=== PATIENT | female | born 1960 | race African-American/Black ===

== ENCOUNTER 2017-05-10 10:11 | Inpatient (IN) ==
[2017-05-10] MEDS ORDERED: methylPREDNISolone SOD SUC 40 MG/1 ML VIAL IV STA (10:35)
[2017-05-10] MEDS ORDERED: methylPREDNISolone SOD SUC 40 MG/1 ML VIAL ONE (10:43)
[2017-05-10 11:31] LABS: Basophils % 0.2 % (0.0-0.8); Eosinophils % 0.3 % (0.00-10.9); Hematocrit 23.9 VOL% (35.7-47.0); Hemoglobin 7.3 GM/DL (12.0-16.0); Immature Granulocytes % 1.6 %; Immature Granulocytes Absolute 0.15 #; Lymphocytes # 1.8 10*3/uL (1.4-4.0); Lymphocytes % 19.6 % (21.3-54.2); Mean Corpuscular HGB Conc 30.5 GM/DL (32-36); Mean Corpuscular Hemoglobin 29 PG (27-34); Mean Corpuscular Volume 94.5 FL (87-102); Mean Platelet Volume 13.4 FL (9.6-12.0); Monocytes # 0.9 10*3/uL (0.11-0.8); Monocytes % 9.4 % (1.7-12.7); NRBC # 0.04 10*3/uL; Neutrophils # 6.5 10*3/uL (1.4-7.4); Neutrophils % 68.9 % (38.7-73.9); Platelet Count 177 T/CUMM (130-400); Red Blood Count 2.53 MC/CUMM (3.8-5.5); Red Cell Distribution Width 20.8 % (9.3-17.3); White Blood Count 9.4 T/CUMM (4-12)
[2017-05-10 11:46] LABS: Bilirubin,Total 0.5 MG/DL (0.2-1.0); Calcium 8.5 MG/DL (8.5-10.1); Osmolality,Calculated 289.5 MOS/KG (273-304); Potassium 3.9 MMOL/L (3.5-5.1); Total Protein 6.9 G/DL (6.4-8.3)
[2017-05-10] MEDS ORDERED: hydrALAZINE 20 MG/1 ML VIAL IV STA (12:12)
[2017-05-10] MEDS ORDERED: hydrALAZINE 20 MG/1 ML VIAL ONE (12:22)
[2017-05-10] MEDS ORDERED: SODIUM CHLORIDE 0.9% 1,000 ML IV PRN (13:12)
[2017-05-10] MEDS ORDERED: DOCUSATE SODIUM 100 MG CAPSULE PO PRN (14:31)
[2017-05-10] MEDS ORDERED: ACETAMINOPHEN 325 MG TABLET PO PRN (14:31)
[2017-05-10] MEDS ORDERED: ONDANSETRON 4 MG/2 ML VIAL IV PRN (14:31)
[2017-05-10] MEDS ORDERED: VANCOMYCIN INJ 1,000 MG in SODIUM CHLORIDE 0.9% 250 ML IV SCH (15:00)
[2017-05-10 18:30] LABS: Hepatitis A Ab IgM Quant 0.09 Index; Hepatitis A Ab IgM Result Negative (Negative); Hepatitis B Core IgM Quant 0.15 Index; Hepatitis B Core IgM Result Negative (Negative); Hepatitis B Surface Ag Quant < 0.10 Index; Hepatitis B Surface Ag Result Negative (Negative); Hepatitis C Virus Ab Quant 0.02 Index; Hepatitis C Virus Ab Result Negative (Negative)
[2017-05-10] MEDS: cloNIDine 0.1 MG TABLET PO SCH (21:22)
[2017-05-10] MEDS: METOPROLOL TARTRATE 50 MG TABLET PO SCH (21:22)
[2017-05-11 05:54] LABS: Basophils # 0.1 10*3/uL (0.0-0.2); Basophils % 0.6 % (0.0-0.8); Eosinophils # 0.1 10*3/uL (0.0-0.87); Eosinophils % 0.5 % (0.00-10.9); Hematocrit 26.3 VOL% (35.7-47.0); Hemoglobin 8.5 GM/DL (12.0-16.0); Immature Granulocytes % 1.7 %; Immature Granulocytes Absolute 0.19 #; Lymphocytes # 2.5 10*3/uL (1.4-4.0); Lymphocytes % 22.9 % (21.3-54.2); Mean Corpuscular HGB Conc 32.3 GM/DL (32-36); Mean Corpuscular Hemoglobin 29 PG (27-34); Mean Corpuscular Volume 90.1 FL (87-102); Mean Platelet Volume 12.7 FL (9.6-12.0); Monocytes # 1.2 10*3/uL (0.11-0.8); Monocytes % 11.1 % (1.7-12.7); NRBC # 0.06 10*3/uL; Neutrophils # 6.9 10*3/uL (1.4-7.4); Neutrophils % 63.2 % (38.7-73.9); Platelet Count 160 T/CUMM (130-400); Red Blood Count 2.92 MC/CUMM (3.8-5.5); Red Cell Distribution Width 19.6 % (9.3-17.3)
[2017-05-11 06:19] LABS: Calcium 8.4 MG/DL (8.5-10.1); Osmolality,Calculated 282.4 MOS/KG (273-304); Potassium 3.9 MMOL/L (3.5-5.1)
[2017-05-11 08:15] VITALS: BP 142/59
[2017-05-11] MEDS ORDERED: PANTOPRAZOLE 40 MG TABLET PO SCH (09:00)
[2017-05-11] MEDS ORDERED: CHOLECALCIFEROL 1,000 UNIT TABLET PO SCH (09:00)
[2017-05-11] MEDS ORDERED: ASPIRIN EC 81 MG TABLET PO SCH (09:00)
[2017-05-11] MEDS ORDERED: MULTIVITAMIN (BEROCCA) TABLET PO SCH (09:00)
[2017-05-11] MEDS ORDERED: OLMESARTAN 20 MG TABLET PO SCH (09:00)
[2017-05-11] MEDS ORDERED: ASCORBIC ACID 500 MG TABLET PO SCH (09:00)
[2017-05-11] MEDS ORDERED: ESTRADIOL 2 MG TABLET PO SCH (09:00)
[2017-05-11] MEDS ORDERED: OMEGA 3 ACID ETHYL ESTERS 1 GM CAPSULE PO SCH (09:00)
[2017-05-11] MEDS ORDERED: amLODIPine 10 MG TABLET PO SCH (09:00)
[2017-05-11] MEDS ORDERED: FERROUS SULFATE 325 MG TABLET PO SCH (09:00)
[2017-05-11] MEDS ORDERED: RENAL PO SCH (09:00)
[2017-05-11] MEDS: cloNIDine 0.1 MG TABLET PO SCH (10:32)
[2017-05-11] MEDS: METOPROLOL TARTRATE 50 MG TABLET PO SCH (10:34)
== END 2017-05-11 13:33 | disposition home or self-care (01) | DRG 811 ==
LOC: N.ED 10:11 → N.EDINP 13:28 → N.5E 17:31
PROVIDERS: ADMIT Hospitalist; ATTEND Hospitalist

== ENCOUNTER 2017-10-13 07:15 | Inpatient (IN) ==
[2017-10-13 08:26] LABS: Basophils # 0.1 10*3/uL (0.0-0.2); Basophils % 0.4 % (0.0-0.8); Eosinophils # 0.1 10*3/uL (0.0-0.87); Eosinophils % 0.3 % (0.00-10.9); Hemoglobin 9.3 GM/DL (12.0-16.0); Immature Granulocytes % 0.7 %; Immature Granulocytes Absolute 0.13 #; Lymphocytes # 1.7 10*3/uL (1.4-4.0); Lymphocytes % 9.2 % (21.3-54.2); Mean Corpuscular HGB Conc 32.1 GM/DL (32-36); Mean Corpuscular Hemoglobin 28 PG (27-34); Mean Corpuscular Volume 88.4 FL (87-102); Mean Platelet Volume 12.5 FL (9.6-12.0); Monocytes # 1.3 10*3/uL (0.11-0.8); Monocytes % 6.8 % (1.7-12.7); Neutrophils # 15.2 10*3/uL (1.4-7.4); Neutrophils % 82.6 % (38.7-73.9); Platelet Count 316 T/CUMM (130-400); Red Blood Count 3.28 MC/CUMM (3.8-5.5); Red Cell Distribution Width 17.4 % (9.3-17.3); White Blood Count 18.4 T/CUMM (4-12)
[2017-10-13 08:56] LABS: Calcium 9.5 MG/DL (8.5-10.1); Osmolality,Calculated 288.4 MOS/KG (273-304); Potassium 3.4 MMOL/L (3.5-5.1)
[2017-10-13 21:33] LABS: Troponin I Only 0.016 NG/ML (0.00-0.045)
[2017-10-13 21:37] LABS: INR 0.9
[2017-10-14 05:22] LABS: Basophils # 0.1 10*3/uL (0.0-0.2); Basophils % 0.5 % (0.0-0.8); Eosinophils # 0.3 10*3/uL (0.0-0.87); Eosinophils % 2.1 % (0.00-10.9); Hematocrit 28.6 VOL% (35.7-47.0); Hemoglobin 8.9 GM/DL (12.0-16.0); Immature Granulocytes % 0.5 %; Immature Granulocytes Absolute 0.08 #; Lymphocytes # 1.5 10*3/uL (1.4-4.0); Lymphocytes % 10.5 % (21.3-54.2); Mean Corpuscular HGB Conc 31.1 GM/DL (32-36); Mean Corpuscular Hemoglobin 28 PG (27-34); Mean Corpuscular Volume 90.8 FL (87-102); Monocytes # 1.5 10*3/uL (0.11-0.8); Monocytes % 10.1 % (1.7-12.7); Neutrophils # 11.1 10*3/uL (1.4-7.4); Neutrophils % 76.3 % (38.7-73.9); Platelet Count 273 T/CUMM (130-400); Red Blood Count 3.15 MC/CUMM (3.8-5.5); Red Cell Distribution Width 17.3 % (9.3-17.3); White Blood Count 14.6 T/CUMM (4-12)
[2017-10-14 05:40] LABS: Troponin I Only < 0.015 NG/ML (0.00-0.045)
[2017-10-14 06:45] LABS: Alanine Aminotransferase < 9 U/L (13-56); Albumin 2.5 G/DL (3.4-5.0); Alkaline Phosphatase 89 U/L (45-117); Aspartate Amino Transferase 20 U/L (0-37); Blood Urea Nitrogen 42 MG/DL (7-18); Calcium 8.6 MG/DL (8.5-10.1); Glucose 103 MG/DL (74-106); Osmolality,Calculated 296.8 MOS/KG (273-304); Potassium 3.5 MMOL/L (3.5-5.1); Sodium 144 MMOL/L (136-145); Total Protein 6.3 G/DL (6.4-8.3)
[2017-10-15 07:16] LABS: Basophils % 0.4 % (0.0-0.8); Eosinophils # 0.6 10*3/uL (0.0-0.87); Eosinophils % 5.6 % (0.00-10.9); Hematocrit 24.5 VOL% (35.7-47.0); Hemoglobin 7.6 GM/DL (12.0-16.0); Immature Granulocytes % 0.6 %; Immature Granulocytes Absolute 0.06 #; Lymphocytes # 2.4 10*3/uL (1.4-4.0); Lymphocytes % 22.8 % (21.3-54.2); Mean Corpuscular Hemoglobin 28 PG (27-34); Mean Corpuscular Volume 89.7 FL (87-102); Mean Platelet Volume 12.1 FL (9.6-12.0); Monocytes # 0.9 10*3/uL (0.11-0.8); Monocytes % 8.6 % (1.7-12.7); Neutrophils # 6.7 10*3/uL (1.4-7.4); Platelet Count 265 T/CUMM (130-400); Red Blood Count 2.73 MC/CUMM (3.8-5.5); Red Cell Distribution Width 16.8 % (9.3-17.3); White Blood Count 10.7 T/CUMM (4-12)
[2017-10-15 07:54] LABS: Alanine Aminotransferase < 6 U/L (13-56); Albumin 2.4 G/DL (3.4-5.0); Alkaline Phosphatase 79 U/L (45-117); Aspartate Amino Transferase 13 U/L (0-37); Bilirubin,Total < 0.39 MG/DL (0.2-1.0); Blood Urea Nitrogen 49 MG/DL (7-18); Calcium 8.6 MG/DL (8.5-10.1); Glucose 107 MG/DL (74-106); Osmolality,Calculated 291.4 MOS/KG (273-304); Potassium 3.4 MMOL/L (3.5-5.1); Sodium 140 MMOL/L (136-145); Total Protein 5.8 G/DL (6.4-8.3)
[2017-10-16 07:53] LABS: Basophils # 0.1 10*3/uL (0.0-0.2); Basophils % 0.8 % (0.0-0.8); Eosinophils # 0.3 10*3/uL (0.0-0.87); Eosinophils % 3.5 % (0.00-10.9); Hematocrit 29.1 VOL% (35.7-47.0); Hemoglobin 8.5 GM/DL (12.0-16.0); Immature Granulocytes % 0.9 %; Immature Granulocytes Absolute 0.08 #; Lymphocytes % 21.4 % (21.3-54.2); Mean Corpuscular HGB Conc 29.2 GM/DL (32-36); Mean Corpuscular Hemoglobin 27 PG (27-34); Mean Corpuscular Volume 92.7 FL (87-102); Mean Platelet Volume 11.7 FL (9.6-12.0); Monocytes # 0.9 10*3/uL (0.11-0.8); Monocytes % 9.9 % (1.7-12.7); Neutrophils # 5.8 10*3/uL (1.4-7.4); Neutrophils % 63.5 % (38.7-73.9); Platelet Count 290 T/CUMM (130-400); Red Blood Count 3.14 MC/CUMM (3.8-5.5); Red Cell Distribution Width 16.6 % (9.3-17.3); White Blood Count 9.2 T/CUMM (4-12)
[2017-10-16 08:25] LABS: Alanine Aminotransferase < 9 U/L (13-56); Albumin 2.7 G/DL (3.4-5.0); Alkaline Phosphatase 92 U/L (45-117); Aspartate Amino Transferase 14 U/L (0-37); Bilirubin,Total < 0.39 MG/DL (0.2-1.0); Blood Urea Nitrogen 29 MG/DL (7-18); Calcium 8.6 MG/DL (8.5-10.1); Glucose 87 MG/DL (74-106); Osmolality,Calculated 281.5 MOS/KG (273-304); Potassium 3.1 MMOL/L (3.5-5.1); Sodium 139 MMOL/L (136-145); Total Protein 6.9 G/DL (6.4-8.3)
[2017-10-17 05:56] LABS: Basophils # 0.1 10*3/uL (0.0-0.2); Basophils % 0.7 % (0.0-0.8); Eosinophils # 0.4 10*3/uL (0.0-0.87); Hematocrit 25.2 VOL% (35.7-47.0); Hemoglobin 7.8 GM/DL (12.0-16.0); Immature Granulocytes % 1.3 %; Immature Granulocytes Absolute 0.12 #; Lymphocytes # 2.3 10*3/uL (1.4-4.0); Lymphocytes % 25.4 % (21.3-54.2); Mean Corpuscular Hemoglobin 28 PG (27-34); Mean Platelet Volume 11.5 FL (9.6-12.0); Monocytes # 1.2 10*3/uL (0.11-0.8); Neutrophils % 55.6 % (38.7-73.9); Platelet Count 261 T/CUMM (130-400); Red Cell Distribution Width 16.5 % (9.3-17.3)
[2017-10-17 06:24] LABS: Alanine Aminotransferase < 6 U/L (13-56); Albumin 2.3 G/DL (3.4-5.0); Alkaline Phosphatase 78 U/L (45-117); Aspartate Amino Transferase 9 U/L (0-37); Bilirubin,Total < 0.39 MG/DL (0.2-1.0); Blood Urea Nitrogen 43 MG/DL (7-18); Calcium 8.4 MG/DL (8.5-10.1); Glucose 100 MG/DL (74-106); Osmolality,Calculated 293.1 MOS/KG (273-304); Potassium 3.4 MMOL/L (3.5-5.1); Sodium 142 MMOL/L (136-145)
[2017-10-17 10:26] LABS: Hepatitis B Surface Ag Quant < 0.10 Index; Hepatitis B Surface Ag Result Negative (Negative)
[2017-10-17 18:31] VITALS: BP 110/58
== END 2017-10-17 16:35 | disposition home or self-care (01) | DRG 177 ==
LOC: N.ED 07:15 → SUATTDRO 12:23 → N.EDINP 12:23 → N.CC 14:59 → N.3E 10-14 10:32
PROVIDERS: ADMIT Internal Medicine; ATTEND Internal Medicine

== ENCOUNTER 2017-10-22 08:45 | Inpatient (IN) ==
[2017-10-22] MEDS ORDERED: DILTIAZEM 50 MG/10 ML VIAL IV STA ×2 (09:23→10:06)
[2017-10-22] MEDS ORDERED: DILTIAZEM 100 MG VIAL.ADD IV ONE (09:27)
[2017-10-22] MEDS ORDERED: SODIUM CHLORIDE 0.9% 100 ML IV ONE (09:28)
[2017-10-22 10:12] LABS: Basophils # 0.1 10*3/uL (0.0-0.2); Basophils % 0.6 % (0.0-0.8); Eosinophils # 0.1 10*3/uL (0.0-0.87); Eosinophils % 0.8 % (0.00-10.9); Hematocrit 35.6 VOL% (35.7-47.0); Hemoglobin 10.7 GM/DL (12.0-16.0); Immature Granulocytes % 2.3 %; Immature Granulocytes Absolute 0.37 #; Lymphocytes # 1.9 10*3/uL (1.4-4.0); Lymphocytes % 11.7 % (21.3-54.2); Mean Corpuscular HGB Conc 30.1 GM/DL (32-36); Mean Corpuscular Hemoglobin 28 PG (27-34); Mean Corpuscular Volume 92.2 FL (87-102); Mean Platelet Volume 12.9 FL (9.6-12.0); Monocytes # 1.5 10*3/uL (0.11-0.8); Monocytes % 9.4 % (1.7-12.7); NRBC # 0.07 10*3/uL; Neutrophils # 12.1 10*3/uL (1.4-7.4); Neutrophils % 75.2 % (38.7-73.9); Platelet Count 314 T/CUMM (130-400); Red Blood Count 3.86 MC/CUMM (3.8-5.5); Red Cell Distribution Width 17.4 % (9.3-17.3); White Blood Count 16.1 T/CUMM (4-12)
[2017-10-22 10:21] LABS: INR 0.9; Partial Thromboplastin Time 28.4 SECS (0-40)
[2017-10-22 10:34] LABS: Albumin 2.8 G/DL (3.4-5.0); Bilirubin,Total 0.4 MG/DL (0.2-1.0); Calcium 8.8 MG/DL (8.5-10.1); Osmolality,Calculated 299.4 MOS/KG (273-304); Potassium 3.8 MMOL/L (3.5-5.1); Total Protein 7.3 G/DL (6.4-8.3)
[2017-10-22] MEDS ORDERED: ONDANSETRON 4 MG/2 ML VIAL IV STA (11:26)
[2017-10-22] MEDS ORDERED: ACETAMINOPHEN 325 MG TABLET PO PRN (14:37)
[2017-10-22] MEDS ORDERED: DEXTROSE 50% 25 GM/50 ML VIAL IV PRN (14:37)
[2017-10-22] MEDS ORDERED: GLUCAGON 1 MG VIAL IM PRN (14:37)
[2017-10-22] MEDS ORDERED: METOCLOPRAMIDE 10 MG/10 ML UDCUP PO SCH (15:00)
[2017-10-22] MEDS ORDERED: ENOXAPARIN 30 MG/0.3 ML SYRINGE SUBCUT SCH (15:00)
[2017-10-22] MEDS ORDERED: DILTIAZEM 60 MG TABLET PO ONE (15:54)
[2017-10-22] MEDS: METOPROLOL TARTRATE 50 MG TABLET PO SCH ×2 (16:09→22:09)
[2017-10-22] MEDS: PIPERACILLIN/TAZOBACTAM 3,375 MG in SODIUM CHLORIDE 0.9% 100 ML IV SCH (16:10)
[2017-10-22] MEDS ORDERED: PANTOPRAZOLE 40 MG TABLET PO SCH (16:30)
[2017-10-22] MEDS: INSULIN REGULAR 100 UNIT/ML SUBCUT SCH ×2 (16:53→22:08)
[2017-10-22] MEDS: APIXABAN 2.5 MG TABLET PO SCH ×2 (16:53→22:07)
[2017-10-22] MEDS: METOCLOPRAMIDE 10 MG/2 ML VIAL IV SCH (18:24)
[2017-10-22] MEDS: DILTIAZEM 30 MG TABLET PO SCH (22:07)
[2017-10-22] MEDS: cloNIDine 0.1 MG TABLET PO SCH (22:08)
[2017-10-22] MEDS: PANTOPRAZOLE 40 MG VIAL IV SCH (22:09)
[2017-10-23] MEDS: METOCLOPRAMIDE 10 MG/2 ML VIAL IV SCH ×4 (01:32→18:00)
[2017-10-23] MEDS: DILTIAZEM 30 MG TABLET PO SCH ×4 (04:05→20:57)
[2017-10-23] MEDS: PIPERACILLIN/TAZOBACTAM 3,375 MG in SODIUM CHLORIDE 0.9% 100 ML IV SCH ×2 (04:06→15:20)
[2017-10-23 04:39] LABS: Basophils # 0.1 10*3/uL (0.0-0.2); Basophils % 0.6 % (0.0-0.8); Eosinophils # 0.4 10*3/uL (0.0-0.87); Eosinophils % 2.9 % (0.00-10.9); Hematocrit 29.8 VOL% (35.7-47.0); Hemoglobin 8.9 GM/DL (12.0-16.0); Immature Granulocytes % 1.5 %; Immature Granulocytes Absolute 0.19 #; Lymphocytes # 2.9 10*3/uL (1.4-4.0); Lymphocytes % 23.5 % (21.3-54.2); Mean Corpuscular HGB Conc 29.9 GM/DL (32-36); Mean Corpuscular Hemoglobin 28 PG (27-34); Mean Corpuscular Volume 92.3 FL (87-102); Monocytes # 1.3 10*3/uL (0.11-0.8); Monocytes % 10.4 % (1.7-12.7); NRBC # 0.03 10*3/uL; Neutrophils # 7.6 10*3/uL (1.4-7.4); Neutrophils % 61.1 % (38.7-73.9); Platelet Count 339 T/CUMM (130-400); Red Blood Count 3.23 MC/CUMM (3.8-5.5); Red Cell Distribution Width 17.5 % (9.3-17.3); White Blood Count 12.5 T/CUMM (4-12)
[2017-10-23 05:04] LABS: Risk Ratio 2.55; VLDL CHOLESTEROL 49.2 MG/DL
[2017-10-23 05:10] LABS: Alanine Aminotransferase < 9 U/L (13-56); Albumin 2.7 G/DL (3.4-5.0); Alkaline Phosphatase 100 U/L (45-117); Aspartate Amino Transferase 12 U/L (0-37); Blood Urea Nitrogen 60 MG/DL (7-18); Glucose 193 MG/DL (74-106); Osmolality,Calculated 302.3 MOS/KG (273-304); Sodium 141 MMOL/L (136-145); Total Protein 6.8 G/DL (6.4-8.3)
[2017-10-23] MEDS ORDERED: amLODIPine 10 MG TABLET PO SCH (09:00)
[2017-10-23] MEDS: MULTIVITAMIN (BEROCCA) TABLET PO SCH (09:55)
[2017-10-23] MEDS: OMEGA 3 ACID ETHYL ESTERS 1 GM CAPSULE PO SCH (09:55)
[2017-10-23] MEDS: CHOLECALCIFEROL 1,000 UNIT TABLET PO SCH (09:55)
[2017-10-23] MEDS: APIXABAN 2.5 MG TABLET PO SCH ×2 (09:56→20:57)
[2017-10-23] MEDS: ASPIRIN EC 81 MG TABLET PO SCH (09:56)
[2017-10-23] MEDS: PANTOPRAZOLE 40 MG VIAL IV SCH ×2 (09:56→22:09)
[2017-10-23] MEDS: INSULIN REGULAR 100 UNIT/ML SUBCUT SCH ×4 (09:56→21:06)
[2017-10-23] MEDS: cloNIDine 0.1 MG TABLET PO SCH (09:57)
[2017-10-23] MEDS: METOPROLOL TARTRATE 50 MG TABLET PO SCH ×2 (09:57→20:57)
[2017-10-23] MEDS ORDERED: cloNIDine 0.1 MG TABLET PO PRN (11:25)
[2017-10-24] MEDS: METOCLOPRAMIDE 10 MG/2 ML VIAL IV SCH ×3 (01:17→12:42)
[2017-10-24] MEDS: PIPERACILLIN/TAZOBACTAM 3,375 MG in SODIUM CHLORIDE 0.9% 100 ML IV SCH ×2 (03:09→16:57)
[2017-10-24] MEDS: DILTIAZEM 30 MG TABLET PO SCH ×4 (03:15→21:04)
[2017-10-24 06:16] LABS: Basophils # 0.1 10*3/uL (0.0-0.2); Basophils % 0.8 % (0.0-0.8); Eosinophils # 0.2 10*3/uL (0.0-0.87); Eosinophils % 1.8 % (0.00-10.9); Hematocrit 30.9 VOL% (35.7-47.0); Hemoglobin 9.5 GM/DL (12.0-16.0); Immature Granulocytes % 1.4 %; Immature Granulocytes Absolute 0.15 #; Lymphocytes # 2.2 10*3/uL (1.4-4.0); Lymphocytes % 19.7 % (21.3-54.2); Mean Corpuscular HGB Conc 30.7 GM/DL (32-36); Mean Corpuscular Hemoglobin 28 PG (27-34); Mean Corpuscular Volume 90.9 FL (87-102); Mean Platelet Volume 12.5 FL (9.6-12.0); Monocytes # 1.2 10*3/uL (0.11-0.8); Monocytes % 10.5 % (1.7-12.7); NRBC # 0.04 10*3/uL; Neutrophils # 7.2 10*3/uL (1.4-7.4); Neutrophils % 65.8 % (38.7-73.9); Platelet Count 296 T/CUMM (130-400); Red Cell Distribution Width 17.7 % (9.3-17.3); White Blood Count 10.9 T/CUMM (4-12)
[2017-10-24 06:59] LABS: Alanine Aminotransferase < 9 U/L (13-56); Albumin 2.5 G/DL (3.4-5.0); Alkaline Phosphatase 113 U/L (45-117); Aspartate Amino Transferase 13 U/L (0-37); Blood Urea Nitrogen 33 MG/DL (7-18); Calcium 8.6 MG/DL (8.5-10.1); Glucose 162 MG/DL (74-106); Osmolality,Calculated 283.8 MOS/KG (273-304); Sodium 137 MMOL/L (136-145); Total Protein 6.6 G/DL (6.4-8.3)
[2017-10-24] MEDS: INSULIN REGULAR 100 UNIT/ML SUBCUT SCH ×4 (08:10→22:21)
[2017-10-24] MEDS: OMEGA 3 ACID ETHYL ESTERS 1 GM CAPSULE PO SCH (08:11)
[2017-10-24] MEDS: CHOLECALCIFEROL 1,000 UNIT TABLET PO SCH (08:11)
[2017-10-24] MEDS: PANTOPRAZOLE 40 MG VIAL IV SCH (08:11)
[2017-10-24] MEDS: MULTIVITAMIN (BEROCCA) TABLET PO SCH (08:12)
[2017-10-24] MEDS: APIXABAN 2.5 MG TABLET PO SCH ×2 (08:12→21:05)
[2017-10-24] MEDS: ASPIRIN EC 81 MG TABLET PO SCH (08:13)
[2017-10-24] MEDS: METOPROLOL TARTRATE 50 MG TABLET PO SCH ×2 (08:13→21:04)
[2017-10-24] MEDS: METOCLOPRAMIDE 10 MG/10 ML UDCUP PO SCH ×2 (16:50→21:06)
[2017-10-24] MEDS: PANTOPRAZOLE 40 MG TABLET PO SCH (18:14)
[2017-10-24] MEDS: MEGESTROL 400 MG/10 ML UDCUP PO SCH (21:06)
[2017-10-25] MEDS: PIPERACILLIN/TAZOBACTAM 3,375 MG in SODIUM CHLORIDE 0.9% 100 ML IV SCH (03:37)
[2017-10-25] MEDS: DILTIAZEM 30 MG TABLET PO SCH (03:38)
[2017-10-25 04:57] LABS: Basophils # 0.1 10*3/uL (0.0-0.2); Basophils % 0.7 % (0.0-0.8); Eosinophils # 0.2 10*3/uL (0.0-0.87); Hemoglobin 9.2 GM/DL (12.0-16.0); Immature Granulocytes % 1.5 %; Immature Granulocytes Absolute 0.16 #; Lymphocytes # 2.3 10*3/uL (1.4-4.0); Lymphocytes % 21.3 % (21.3-54.2); Mean Corpuscular HGB Conc 30.7 GM/DL (32-36); Mean Corpuscular Hemoglobin 28 PG (27-34); Mean Corpuscular Volume 91.5 FL (87-102); Mean Platelet Volume 12.5 FL (9.6-12.0); Monocytes # 1.3 10*3/uL (0.11-0.8); Monocytes % 11.9 % (1.7-12.7); NRBC # 0.03 10*3/uL; Neutrophils # 6.7 10*3/uL (1.4-7.4); Neutrophils % 62.6 % (38.7-73.9); Platelet Count 283 T/CUMM (130-400); Red Blood Count 3.28 MC/CUMM (3.8-5.5); Red Cell Distribution Width 17.7 % (9.3-17.3); White Blood Count 10.7 T/CUMM (4-12)
[2017-10-25 05:35] LABS: Albumin 2.6 G/DL (3.4-5.0); Bilirubin,Total 0.5 MG/DL (0.2-1.0); Calcium 8.4 MG/DL (8.5-10.1); Osmolality,Calculated 294.7 MOS/KG (273-304); Potassium 3.8 MMOL/L (3.5-5.1); Total Protein 7.1 G/DL (6.4-8.3)
[2017-10-25] MEDS ORDERED: DILTIAZEM CD 120 MG CAPSULE PO SCH (09:00)
[2017-10-25] MEDS ORDERED: amLODIPine 10 MG TABLET PO SCH (09:00)
[2017-10-25] MEDS: ASPIRIN EC 81 MG TABLET PO SCH (09:39)
[2017-10-25] MEDS: OMEGA 3 ACID ETHYL ESTERS 1 GM CAPSULE PO SCH (09:39)
[2017-10-25] MEDS: METOCLOPRAMIDE 10 MG/10 ML UDCUP PO SCH ×2 (09:39→12:13)
[2017-10-25] MEDS: MULTIVITAMIN (BEROCCA) TABLET PO SCH (09:39)
[2017-10-25] MEDS: APIXABAN 2.5 MG TABLET PO SCH (09:39)
[2017-10-25] MEDS: MEGESTROL 400 MG/10 ML UDCUP PO SCH (09:39)
[2017-10-25] MEDS: CHOLECALCIFEROL 1,000 UNIT TABLET PO SCH (09:39)
[2017-10-25] MEDS: PANTOPRAZOLE 40 MG TABLET PO SCH (09:40)
[2017-10-25] MEDS: INSULIN REGULAR 100 UNIT/ML SUBCUT SCH ×2 (09:40→12:13)
[2017-10-25] MEDS: METOPROLOL TARTRATE 50 MG TABLET PO SCH (09:40)
[2017-10-25] MEDS ORDERED: CHOLESTYRAMINE 4 GM PACK PO SCH (11:30)
[2017-10-25 12:10] VITALS: BP 159/89
== END 2017-10-25 15:27 | disposition home or self-care (01) | DRG 871 ==
LOC: EDBD → EDUNIT# → N.ED 08:45 → N.EDINP 10:47 → SUATTDRO 10:47 → N.EDINP 13:00 → N.TELES 13:08
PROVIDERS: ADMIT Internal Medicine; ATTEND Internal Medicine Cardiovascular Disease

== ENCOUNTER 2017-11-09 10:00 | Inpatient (IN) ==
[2017-11-09] MEDS ORDERED: ONDANSETRON 4 MG/2 ML VIAL IV STA ×2 (10:33→12:36)
[2017-11-09] MEDS ORDERED: ONDANSETRON 4 MG/2 ML VIAL ONE (10:34)
[2017-11-09 11:19] LABS: Basophils % 0.5 % (0.0-0.8); Eosinophils # 0.1 10*3/uL (0.0-0.87); Eosinophils % 0.8 % (0.00-10.9); Hematocrit 29.9 VOL% (35.7-47.0); Hemoglobin 9.1 GM/DL (12.0-16.0); Immature Granulocytes % 1.9 %; Immature Granulocytes Absolute 0.17 #; Lymphocytes # 1.3 10*3/uL (1.4-4.0); Lymphocytes % 14.4 % (21.3-54.2); Mean Corpuscular HGB Conc 30.4 GM/DL (32-36); Mean Corpuscular Hemoglobin 28 PG (27-34); Mean Corpuscular Volume 91.4 FL (87-102); Mean Platelet Volume 11.6 FL (9.6-12.0); Monocytes % 11.2 % (1.7-12.7); NRBC # 0.03 10*3/uL; Neutrophils # 6.3 10*3/uL (1.4-7.4); Neutrophils % 71.2 % (38.7-73.9); Platelet Count 324 T/CUMM (130-400); Red Blood Count 3.27 MC/CUMM (3.8-5.5); Red Cell Distribution Width 18.6 % (9.3-17.3); White Blood Count 8.8 T/CUMM (4-12)
[2017-11-09 11:53] LABS: Lactic Acid 3.5 MMOL/L (0.4-2.0)
[2017-11-09 11:55] LABS: Alanine Aminotransferase 16 U/L (13-56); Albumin 2.3 G/DL (3.4-5.0); Alkaline Phosphatase 120 U/L (45-117); Aspartate Amino Transferase 27 U/L (0-37); Bilirubin,Total < 0.39 MG/DL (0.2-1.0); Blood Urea Nitrogen 24 MG/DL (7-18); Calcium 8.3 MG/DL (8.5-10.1); Glucose 83 MG/DL (74-106); Osmolality,Calculated 275.8 MOS/KG (273-304); Sodium 137 MMOL/L (136-145); Total Protein 6.8 G/DL (6.4-8.3)
[2017-11-09 11:56] LABS: Troponin I Only 0.135 NG/ML (0.00-0.045)
[2017-11-09] MEDS ORDERED: HYDROmorphone 2 MG/1 ML VIAL IV STA (12:27)
[2017-11-09] MEDS ORDERED: MORPHINE 4 MG/1 ML VIAL IV STA (12:43)
[2017-11-09] MEDS ORDERED: DEXTROSE 50% 25 GM/50 ML SYRINGE IV ONE ×2 (13:48→15:41)
[2017-11-09] MEDS ORDERED: DEXTROSE 50% 25 GM/50 ML VIAL IV STA ×2 (15:45→15:53)
[2017-11-09 16:05] LABS: Lactic Acid 2.9 MMOL/L (0.4-2.0)
[2017-11-09] MEDS ORDERED: MORPHINE 4 MG/1 ML VIAL IV PRN (16:22)
[2017-11-09] MEDS ORDERED: ONDANSETRON 4 MG/2 ML VIAL IV PRN (16:22)
[2017-11-09] MEDS ORDERED: DILTIAZEM INJ 100 MG in SODIUM CHLORIDE 0.9% 100 ML IV SCH (16:30)
[2017-11-09] MEDS: DEXTROSE 10% 1,000 ML IV SCH (18:58)
[2017-11-09] MEDS ORDERED: GLUCAGON 1 MG VIAL IM PRN (19:20)
[2017-11-09] MEDS: DEXTROSE 50% 25 GM/50 ML VIAL IV PRN ×2 (19:33→22:20)
[2017-11-09] MEDS ORDERED: ENOXAPARIN 30 MG/0.3 ML SYRINGE SUBCUT SCH (21:00)
[2017-11-10] MEDS: DEXTROSE 50% 25 GM/50 ML VIAL IV PRN ×4 (01:24→12:05)
[2017-11-10] MEDS: PHENOL 1.4% THROAT SPRAY 177 ML BOTTLE PO PRN (04:56)
[2017-11-10 05:37] LABS: Basophils % 0.2 % (0.0-0.8); Eosinophils # 0.1 10*3/uL (0.0-0.87); Eosinophils % 1.6 % (0.00-10.9); Hematocrit 24.9 VOL% (35.7-47.0); Immature Granulocytes % 2.3 %; Lymphocytes # 1.8 10*3/uL (1.4-4.0); Mean Corpuscular HGB Conc 32.1 GM/DL (32-36); Mean Corpuscular Hemoglobin 29 PG (27-34); Mean Corpuscular Volume 90.2 FL (87-102); Mean Platelet Volume 11.9 FL (9.6-12.0); Monocytes # 1.5 10*3/uL (0.11-0.8); Monocytes % 17.1 % (1.7-12.7); NRBC # 0.05 10*3/uL; Neutrophils % 57.8 % (38.7-73.9); Platelet Count 317 T/CUMM (130-400); Red Blood Count 2.76 MC/CUMM (3.8-5.5); Red Cell Distribution Width 18.9 % (9.3-17.3); White Blood Count 8.7 T/CUMM (4-12)
[2017-11-10 05:58] LABS: Alanine Aminotransferase 11 U/L (13-56); Albumin 1.9 G/DL (3.4-5.0); Alkaline Phosphatase 92 U/L (45-117); Aspartate Amino Transferase 14 U/L (0-37); Bilirubin,Total < 0.39 MG/DL (0.2-1.0); Blood Urea Nitrogen 33 MG/DL (7-18); Glucose 477 MG/DL (74-106); Osmolality,Calculated 289.7 MOS/KG (273-304); Sodium 131 MMOL/L (136-145); Total Protein 5.8 G/DL (6.4-8.3)
[2017-11-10 06:50] LABS: Alanine Aminotransferase 11 U/L (13-56); Albumin 2.1 G/DL (3.4-5.0); Alkaline Phosphatase 101 U/L (45-117); Aspartate Amino Transferase 14 U/L (0-37); Bilirubin,Total < 0.39 MG/DL (0.2-1.0); Blood Urea Nitrogen 33 MG/DL (7-18); Calcium 8.4 MG/DL (8.5-10.1); Glucose 390 MG/DL (74-106); Osmolality,Calculated 286.5 MOS/KG (273-304); Potassium 3.2 MMOL/L (3.5-5.1); Sodium 132 MMOL/L (136-145); Total Protein 6.3 G/DL (6.4-8.3)
[2017-11-10 07:11] LABS: Band Neutrophils 4 % (0-10); Hypochromasia 2+; Lymphocytes 31 % (20-55); Macrocytosis 2+; Platelet Estimate Adequate; Polychromasia Slight; Segmented Neutrophils 58 % (50-85); Target Cells Slight; Total Cells Counted 100
[2017-11-10] MEDS ORDERED: POTASSIUM CHLORIDE 20 MEQ TABLET PO ONE (13:08)
[2017-11-10] MEDS: DEXTROSE 5% NACL 0.9% 1,000 ML IV SCH (14:02)
[2017-11-10] MEDS: DEXTROSE 10% 1,000 ML IV SCH (19:06)
[2017-11-10] MEDS: METOCLOPRAMIDE 10 MG/2 ML VIAL IV SCH ×2 (19:10→23:35)
[2017-11-10] MEDS ORDERED: APIXABAN 2.5 MG TABLET PO SCH (21:00)
[2017-11-10] MEDS: CHOLESTYRAMINE 4 GM PACK PO SCH (21:00)
[2017-11-10] MEDS: cloNIDine 0.1 MG TABLET PO PRN (23:36)
[2017-11-11] MEDS: DEXTROSE 5% NACL 0.9% 1,000 ML IV SCH ×2 (04:10→17:31)
[2017-11-11 04:48] LABS: Basophils # 0.1 10*3/uL (0.0-0.2); Basophils % 0.6 % (0.0-0.8); Eosinophils # 0.2 10*3/uL (0.0-0.87); Eosinophils % 2.7 % (0.00-10.9); Hematocrit 25.4 VOL% (35.7-47.0); Hemoglobin 7.9 GM/DL (12.0-16.0); Immature Granulocytes % 3.6 %; Lymphocytes # 2.1 10*3/uL (1.4-4.0); Lymphocytes % 25.9 % (21.3-54.2); Mean Corpuscular HGB Conc 31.1 GM/DL (32-36); Mean Corpuscular Hemoglobin 29 PG (27-34); Mean Corpuscular Volume 91.7 FL (87-102); Mean Platelet Volume 11.6 FL (9.6-12.0); Monocytes # 1.5 10*3/uL (0.11-0.8); Monocytes % 18.3 % (1.7-12.7); NRBC # 0.08 10*3/uL; Neutrophils # 4.1 10*3/uL (1.4-7.4); Neutrophils % 48.9 % (38.7-73.9); Platelet Count 309 T/CUMM (130-400); Red Blood Count 2.77 MC/CUMM (3.8-5.5); Red Cell Distribution Width 18.9 % (9.3-17.3); White Blood Count 8.3 T/CUMM (4-12)
[2017-11-11 05:29] LABS: Band Neutrophils 3 % (0-10); Calcium 7.8 MG/DL (8.5-10.1); Eosinophils 6 % (0-10); Hypochromasia 1+; Lymphocytes 29 % (20-55); Microcytosis 1+; Potassium 3.4 MMOL/L (3.5-5.1); Segmented Neutrophils 49 % (50-85); Target Cells Slight; Total Cells Counted 100
[2017-11-11 05:30] LABS: Ovalocytes Slight; Platelet Estimate Normal
[2017-11-11] MEDS: METOCLOPRAMIDE 10 MG/2 ML VIAL IV SCH ×3 (06:17→17:36)
[2017-11-11] MEDS: ASPIRIN EC 81 MG TABLET PO SCH (08:23)
[2017-11-11] MEDS: CHOLESTYRAMINE 4 GM PACK PO SCH ×2 (08:24→20:53)
[2017-11-11] MEDS ORDERED: EPOETIN ALFA 10,000 UNIT/1 ML VIAL IV PRN (08:45)
[2017-11-11] MEDS ORDERED: PANTOPRAZOLE 40 MG VIAL IV SCH (09:00)
[2017-11-11 09:12] LABS: Albumin 1.8 G/DL (3.4-5.0); Bilirubin,Direct 0.13 MG/DL (0.0-0.20); Bilirubin,Indirect 0.5 MG/DL (0.0-1.0); Bilirubin,Total 0.6 MG/DL (0.2-1.0); Total Protein 5.7 G/DL (6.4-8.3)
[2017-11-11 09:48] LABS: AFP Tumor < 1.3 NG/ML (0-8)
[2017-11-11] MEDS: cloNIDine 0.1 MG TABLET PO PRN (11:07)
[2017-11-11] MEDS: PANTOPRAZOLE 40 MG TABLET PO SCH ×2 (22:26→22:36)
[2017-11-12] MEDS: METOCLOPRAMIDE 10 MG/2 ML VIAL IV SCH ×3 (00:10→14:25)
[2017-11-12 05:47] LABS: Basophils % 0.4 % (0.0-0.8); Eosinophils # 0.1 10*3/uL (0.0-0.87); Eosinophils % 1.8 % (0.00-10.9); Hemoglobin 7.3 GM/DL (12.0-16.0); Immature Granulocytes % 3.9 %; Immature Granulocytes Absolute 0.26 #; Lymphocytes # 1.3 10*3/uL (1.4-4.0); Lymphocytes % 19.2 % (21.3-54.2); Mean Corpuscular HGB Conc 31.7 GM/DL (32-36); Mean Corpuscular Hemoglobin 29 PG (27-34); Mean Corpuscular Volume 90.6 FL (87-102); Mean Platelet Volume 11.8 FL (9.6-12.0); Monocytes # 1.2 10*3/uL (0.11-0.8); Monocytes % 17.4 % (1.7-12.7); NRBC # 0.05 10*3/uL; Neutrophils # 3.9 10*3/uL (1.4-7.4); Neutrophils % 57.3 % (38.7-73.9); Platelet Count 299 T/CUMM (130-400); Red Blood Count 2.54 MC/CUMM (3.8-5.5); White Blood Count 6.7 T/CUMM (4-12)
[2017-11-12 06:07] LABS: Calcium 7.5 MG/DL (8.5-10.1); Osmolality,Calculated 299.1 MOS/KG (273-304); Potassium 3.7 MMOL/L (3.5-5.1)
[2017-11-12 06:11] LABS: Band Neutrophils 1 % (0-10); Eosinophils 4 % (0-10); Hypochromasia 1+; Lymphocytes 17 % (20-55); Myelocytes 1 %; Nucleated Red Blood Cells 1 (0-5); Segmented Neutrophils 69 % (50-85); Total Cells Counted 100
[2017-11-12 06:12] LABS: Microcytosis 1+; Ovalocytes Slight; Polychromasia Slight
[2017-11-12 06:13] LABS: Platelet Estimate Normal; Target Cells Slight
[2017-11-12] MEDS: DEXTROSE 5% NACL 0.9% 1,000 ML IV SCH ×2 (06:55→22:55)
[2017-11-12] MEDS: PANTOPRAZOLE 40 MG TABLET PO SCH ×2 (14:24→22:12)
[2017-11-12] MEDS: CHOLESTYRAMINE 4 GM PACK PO SCH ×2 (14:24→22:12)
[2017-11-12] MEDS: ASPIRIN EC 81 MG TABLET PO SCH (14:26)
[2017-11-12] MEDS: cloNIDine 0.1 MG TABLET PO PRN (14:34)
[2017-11-12] MEDS: PHENOL 1.4% THROAT SPRAY 177 ML BOTTLE PO PRN (14:34)
[2017-11-12] MEDS: METOCLOPRAMIDE 10 MG/10 ML UDCUP PO SCH ×2 (16:02→22:12)
[2017-11-12 19:57] LABS: Hemoglobin 10.3 GM/DL (12.0-16.0)
[2017-11-13 07:08] LABS: Basophils # 0.1 10*3/uL (0.0-0.2); Basophils % 0.6 % (0.0-0.8); Eosinophils # 0.2 10*3/uL (0.0-0.87); Eosinophils % 2.4 % (0.00-10.9); Hemoglobin 10.2 GM/DL (12.0-16.0); Immature Granulocytes % 4.3 %; Immature Granulocytes Absolute 0.41 #; Lymphocytes # 2.8 10*3/uL (1.4-4.0); Lymphocytes % 28.7 % (21.3-54.2); Mean Corpuscular HGB Conc 32.9 GM/DL (32-36); Mean Corpuscular Hemoglobin 29 PG (27-34); Mean Corpuscular Volume 89.3 FL (87-102); Mean Platelet Volume 11.6 FL (9.6-12.0); Monocytes # 1.5 10*3/uL (0.11-0.8); Monocytes % 15.1 % (1.7-12.7); NRBC # 0.11 10*3/uL; Neutrophils # 4.7 10*3/uL (1.4-7.4); Neutrophils % 48.9 % (38.7-73.9); Platelet Count 259 T/CUMM (130-400); Red Blood Count 3.47 MC/CUMM (3.8-5.5); Red Cell Distribution Width 18.2 % (9.3-17.3); White Blood Count 9.6 T/CUMM (4-12)
[2017-11-13 07:32] LABS: Calcium 8.2 MG/DL (8.5-10.1); Osmolality,Calculated 291.8 MOS/KG (273-304); Potassium 3.8 MMOL/L (3.5-5.1)
[2017-11-13 07:34] LABS: % Iron Saturation 19.5 % (18-50)
[2017-11-13] MEDS: ASPIRIN EC 81 MG TABLET PO SCH (09:44)
[2017-11-13] MEDS: PANTOPRAZOLE 40 MG TABLET PO SCH (09:44)
[2017-11-13] MEDS: CHOLESTYRAMINE 4 GM PACK PO SCH (09:44)
[2017-11-13] MEDS ORDERED: IRON SUCROSE 200 MG in SODIUM CHLORIDE 0.9% 100 ML IV SCH (10:00)
[2017-11-13] MEDS: DEXTROSE 5% NACL 0.9% 1,000 ML IV SCH (10:22)
[2017-11-13] MEDS: METOCLOPRAMIDE 10 MG/10 ML UDCUP PO SCH ×2 (10:29→10:52)
[2017-11-13 12:21] VITALS: BP 145/67
== END 2017-11-13 14:45 | disposition home or self-care (01) | DRG 73 ==
LOC: EDUNIT# → EDBD → N.ED 10:00 → N.EDINP 16:07 → SUATTDRO 16:07 → N.ICU 16:41 → N.5E 11-11 18:09
PROVIDERS: ADMIT Family Medicine; ATTEND Internal Medicine

== ENCOUNTER 2017-12-12 09:55 | Inpatient (IN) ==
[2017-12-12] MEDS ORDERED: PANTOPRAZOLE 40 MG VIAL IV STA (10:22)
[2017-12-12] MEDS ORDERED: ONDANSETRON 4 MG/2 ML VIAL IV PRN ×2 (10:22→12:47)
[2017-12-12 11:15] LABS: Basophils % 0.2 % (0.0-0.8); Eosinophils # 0.1 10*3/uL (0.0-0.87); Eosinophils % 0.8 % (0.00-10.9); Hematocrit 24.8 VOL% (35.7-47.0); Immature Granulocytes Absolute 0.13 #; Lymphocytes # 3.1 10*3/uL (1.4-4.0); Lymphocytes % 23.8 % (21.3-54.2); Mean Corpuscular HGB Conc 32.3 GM/DL (32-36); Mean Corpuscular Hemoglobin 31 PG (27-34); Mean Corpuscular Volume 95.4 FL (87-102); Mean Platelet Volume 12.1 FL (9.6-12.0); Monocytes # 1.4 10*3/uL (0.11-0.8); Monocytes % 11.1 % (1.7-12.7); Neutrophils # 8.2 10*3/uL (1.4-7.4); Neutrophils % 63.1 % (38.7-73.9); Platelet Count 215 T/CUMM (130-400); Red Cell Distribution Width 22.8 % (9.3-17.3); White Blood Count 12.9 T/CUMM (4-12)
[2017-12-12 11:29] LABS: PT Patient Result 10.6 SECS
[2017-12-12 11:37] LABS: Platelet Estimate Normal
[2017-12-12 11:38] LABS: Anisocytosis 2+; Macrocytosis Slight; Polychromasia Slight
[2017-12-12 11:43] LABS: Albumin 1.5 G/DL (3.4-5.0); Bilirubin,Total 0.4 MG/DL (0.2-1.0); Calcium 7.5 MG/DL (8.5-10.1); Osmolality,Calculated 281.3 MOS/KG (273-304); Potassium 3.1 MMOL/L (3.5-5.1); Total Protein 5.4 G/DL (6.4-8.3)
[2017-12-12] MEDS ORDERED: ACETAMINOPHEN 325 MG TABLET PO PRN (12:47)
[2017-12-12] MEDS ORDERED: cloNIDine 0.1 MG TABLET PO PRN (13:37)
[2017-12-12] MEDS ORDERED: ALBUTEROL 2.5 MG/3 ML NEB RESP TX PRN (13:37)
[2017-12-12] MEDS ORDERED: GLUCAGON 1 MG VIAL IM PRN (13:49)
[2017-12-12] MEDS ORDERED: DEXTROSE 50% 25 GM/50 ML VIAL IV PRN (13:49)
[2017-12-12] MEDS: INSULIN LISPRO 100 UNIT/ML SUBCUT SCH ×2 (17:38→22:37)
[2017-12-12] MEDS: METOCLOPRAMIDE 10 MG/2 ML VIAL IV SCH (23:55)
[2017-12-13] MEDS: METOCLOPRAMIDE 10 MG/2 ML VIAL IV SCH ×3 (06:17→17:43)
[2017-12-13 06:18] LABS: Basophils % 0.1 % (0.0-0.8); Eosinophils # 0.1 10*3/uL (0.0-0.87); Eosinophils % 0.7 % (0.00-10.9); Hematocrit 23.3 VOL% (35.7-47.0); Hemoglobin 7.1 GM/DL (12.0-16.0); Immature Granulocytes % 0.8 %; Immature Granulocytes Absolute 0.08 #; Lymphocytes # 3.3 10*3/uL (1.4-4.0); Lymphocytes % 33.5 % (21.3-54.2); Mean Corpuscular HGB Conc 30.5 GM/DL (32-36); Mean Corpuscular Hemoglobin 30 PG (27-34); Mean Corpuscular Volume 99.6 FL (87-102); Mean Platelet Volume 12.3 FL (9.6-12.0); Monocytes # 1.2 10*3/uL (0.11-0.8); Monocytes % 11.7 % (1.7-12.7); NRBC # 0.02 10*3/uL; Neutrophils # 5.2 10*3/uL (1.4-7.4); Neutrophils % 53.2 % (38.7-73.9); Platelet Count 213 T/CUMM (130-400); Red Blood Count 2.34 MC/CUMM (3.8-5.5); Red Cell Distribution Width 22.9 % (9.3-17.3); White Blood Count 9.8 T/CUMM (4-12)
[2017-12-13 06:42] LABS: Calcium 7.3 MG/DL (8.5-10.1); Potassium 3.7 MMOL/L (3.5-5.1); Thyroid Stimulating Hormone 1.45 uIU/ml (0.358-3.74)
[2017-12-13 06:51] LABS: Hypochromasia 1+; Platelet Estimate Adequate
[2017-12-13 06:52] LABS: Giant Platelets Few; Macrocytosis Slight; Polychromasia Slight
[2017-12-13] MEDS: INSULIN LISPRO 100 UNIT/ML SUBCUT SCH ×3 (08:11→16:58)
[2017-12-13] MEDS ORDERED: DILTIAZEM CD 120 MG CAPSULE PO SCH (09:00)
[2017-12-13] MEDS ORDERED: PANTOPRAZOLE 40 MG TABLET PO SCH ×2 (09:00→21:00)
[2017-12-13] MEDS ORDERED: SODIUM CHLORIDE 0.9% 1,000 ML IV PRN (09:19)
[2017-12-13] MEDS ORDERED: METOPROLOL TARTRATE 25 MG TABLET PO SCH (10:30)
[2017-12-13] MEDS ORDERED: AZITHROMYCIN 250 MG TABLET PO SCH (13:00)
[2017-12-13 18:51] LABS: Hematocrit 33.8 VOL% (35.7-47.0); Hemoglobin 10.8 GM/DL (12.0-16.0)
[2017-12-13 18:54] VITALS: BP 138/63
== END 2017-12-13 19:43 | disposition home or self-care (01) | DRG 377 ==
LOC: EDUNIT# → EDBD → N.ED 09:55 → N.EDINP 11:50 → N.3E 12:50

== ENCOUNTER 2018-01-01 11:50 | Inpatient (IN) ==
[2018-01-01] MEDS ORDERED: ONDANSETRON 4 MG/2 ML VIAL IV STA (14:04)
[2018-01-01 15:11] LABS: Basophils # 0.1 10*3/uL (0.0-0.2); Basophils % 0.4 % (0.0-0.8); Hematocrit 36.9 VOL% (35.7-47.0); Hemoglobin 12.2 GM/DL (12.0-16.0); Immature Granulocytes Absolute 0.23 #; Lymphocytes # 3.4 10*3/uL (1.4-4.0); Lymphocytes % 14.2 % (21.3-54.2); Mean Corpuscular HGB Conc 33.1 GM/DL (32-36); Mean Corpuscular Hemoglobin 31 PG (27-34); Mean Corpuscular Volume 92.3 FL (87-102); Mean Platelet Volume 11.2 FL (9.6-12.0); Monocytes # 1.9 10*3/uL (0.11-0.8); Monocytes % 7.7 % (1.7-12.7); Neutrophils # 18.5 10*3/uL (1.4-7.4); Neutrophils % 76.7 % (38.7-73.9); Platelet Count 206 T/CUMM (130-400); White Blood Count 24.1 T/CUMM (4-12)
[2018-01-01 15:30] LABS: Calcium 8.1 MG/DL (8.5-10.1); Osmolality,Calculated 289.3 MOS/KG (273-304); Potassium 3.7 MMOL/L (3.5-5.1)
[2018-01-01] MEDS ORDERED: LEVOFLOXACIN INJ 500 MG in PREMIX 1 EACH IV STA (15:36)
[2018-01-01 16:01] LABS: Band Neutrophils 14 % (0-10); Eosinophils 1 % (0-10); Lymphocytes 15 % (20-55); Polychromasia Slight; Segmented Neutrophils 59 % (50-85); Total Cells Counted 100
[2018-01-01 16:02] LABS: Macrocytosis Slight; Platelet Estimate Adequate
[2018-01-01 16:37] LABS: Thyroid Stimulating Hormone 1.23 uIU/ml (0.358-3.74)
[2018-01-01] MEDS: METOCLOPRAMIDE 5 MG TABLET PO SCH (18:10)
[2018-01-01] MEDS: DORNASE ALFA 2.5 MG/2.5 ML VIAL RESP TX SCH (19:19)
[2018-01-01] MEDS: ALBUTEROL/IPRATROPIUM 3 ML NEB RESP TX SCH (19:19)
[2018-01-01] MEDS: MEGESTROL 40 MG TABLET PO SCH (20:52)
[2018-01-01] MEDS: guaiFENesin/DM ER 600-30 MG TABLET PO SCH (20:52)
[2018-01-01] MEDS: ENOXAPARIN 30 MG/0.3 ML SYRINGE SUBCUT SCH (20:53)
[2018-01-01] MEDS: methylPREDNISolone SOD SUC 40 MG/1 ML VIAL IV SCH (20:53)
[2018-01-01] MEDS: cefTRIAXone 1,000 MG in SYRINGE 1 EACH IV SCH (20:55)
[2018-01-01] MEDS: AZITHROMYCIN INJ 500 MG in SODIUM CHLORIDE 0.9% 250 ML IV SCH (21:26)
[2018-01-02] MEDS: methylPREDNISolone SOD SUC 40 MG/1 ML VIAL IV SCH ×3 (03:54→21:12)
[2018-01-02 04:56] LABS: Basophils # 0.1 10*3/uL (0.0-0.2); Basophils % 0.3 % (0.0-0.8); Hematocrit 30.3 VOL% (35.7-47.0); Hemoglobin 10.5 GM/DL (12.0-16.0); Immature Granulocytes % 0.8 %; Immature Granulocytes Absolute 0.13 #; Lymphocytes # 0.9 10*3/uL (1.4-4.0); Lymphocytes % 5.5 % (21.3-54.2); Mean Corpuscular HGB Conc 34.7 GM/DL (32-36); Mean Corpuscular Hemoglobin 31 PG (27-34); Mean Corpuscular Volume 89.9 FL (87-102); Mean Platelet Volume 11.7 FL (9.6-12.0); Monocytes # 0.4 10*3/uL (0.11-0.8); Monocytes % 2.5 % (1.7-12.7); Neutrophils # 15.6 10*3/uL (1.4-7.4); Neutrophils % 90.9 % (38.7-73.9); Platelet Count 217 T/CUMM (130-400); Red Blood Count 3.37 MC/CUMM (3.8-5.5); Red Cell Distribution Width 17.8 % (9.3-17.3); White Blood Count 17.2 T/CUMM (4-12)
[2018-01-02 05:17] LABS: Albumin 1.3 G/DL (3.4-5.0); Bilirubin,Total 0.6 MG/DL (0.2-1.0); Calcium 7.8 MG/DL (8.5-10.1); Osmolality,Calculated 292.4 MOS/KG (273-304); Potassium 3.8 MMOL/L (3.5-5.1); Total Protein 5.2 G/DL (6.4-8.3)
[2018-01-02 05:18] LABS: Risk Ratio 2.97; VLDL CHOLESTEROL 21.8 MG/DL
[2018-01-02] MEDS ORDERED: METOPROLOL TARTRATE 5 MG/5 ML VIAL IV ONE (05:18)
[2018-01-02 05:19] LABS: Hypochromasia 1+; Lymphocytes 3 % (20-55); Macrocytosis Slight; Platelet Estimate Adequate; Segmented Neutrophils 93 % (50-85); Total Cells Counted 100
[2018-01-02] MEDS: ALBUTEROL/IPRATROPIUM 3 ML NEB RESP TX SCH ×4 (08:14→18:58)
[2018-01-02] MEDS: DORNASE ALFA 2.5 MG/2.5 ML VIAL RESP TX SCH ×2 (08:15→18:59)
[2018-01-02] MEDS ORDERED: [UNRECOGNIZED DRUG - REMARK] PO SCH (09:00)
[2018-01-02] MEDS: MEGESTROL 40 MG TABLET PO SCH ×2 (09:08→21:12)
[2018-01-02] MEDS: guaiFENesin/DM ER 600-30 MG TABLET PO SCH ×2 (09:08→21:12)
[2018-01-02] MEDS: MULTIVITAMIN (BEROCCA) TABLET PO SCH (09:08)
[2018-01-02] MEDS: PANTOPRAZOLE 40 MG TABLET PO SCH (09:08)
[2018-01-02] MEDS: DILTIAZEM CD 120 MG CAPSULE PO SCH (09:08)
[2018-01-02] MEDS: CHOLECALCIFEROL 400 UNIT TABLET PO SCH (09:08)
[2018-01-02] MEDS: METOCLOPRAMIDE 5 MG TABLET PO SCH ×2 (09:08→16:36)
[2018-01-02] MEDS: cefTRIAXone 1,000 MG in SYRINGE 1 EACH IV SCH ×2 (09:09→21:16)
[2018-01-02] MEDS ORDERED: METOPROLOL TARTRATE 25 MG TABLET PO ONE (09:59)
[2018-01-02] MEDS ORDERED: DILTIAZEM 30 MG TABLET PO ONE (10:02)
[2018-01-02] MEDS: CHOLESTYRAMINE 4 GM PACK PO SCH ×2 (14:45→21:12)
[2018-01-02] MEDS ORDERED: ONDANSETRON 4 MG/2 ML VIAL IV PRN (20:06)
[2018-01-02] MEDS: ENOXAPARIN 30 MG/0.3 ML SYRINGE SUBCUT SCH (21:12)
[2018-01-02] MEDS: NYSTATIN 500,000 UNIT/5 ML UDCUP SWISH/SWAL SCH (21:12)
[2018-01-02] MEDS: AZITHROMYCIN INJ 500 MG in SODIUM CHLORIDE 0.9% 250 ML IV SCH (22:10)
[2018-01-03] MEDS: ALBUTEROL/IPRATROPIUM 3 ML NEB RESP TX SCH ×3 (00:14→14:10)
[2018-01-03] MEDS ORDERED: METOPROLOL TARTRATE 5 MG/5 ML VIAL IV ONE ×2 (01:46→13:06)
[2018-01-03] MEDS: methylPREDNISolone SOD SUC 40 MG/1 ML VIAL IV SCH ×3 (03:41→22:38)
[2018-01-03 06:19] LABS: Basophils % 0.2 % (0.0-0.8); Hematocrit 29.4 VOL% (35.7-47.0); Hemoglobin 9.7 GM/DL (12.0-16.0); Immature Granulocytes % 1.2 %; Immature Granulocytes Absolute 0.25 #; Lymphocytes # 2.8 10*3/uL (1.4-4.0); Lymphocytes % 13.5 % (21.3-54.2); Mean Corpuscular Hemoglobin 31 PG (27-34); Mean Corpuscular Volume 92.5 FL (87-102); Mean Platelet Volume 11.8 FL (9.6-12.0); Monocytes # 1.2 10*3/uL (0.11-0.8); Neutrophils # 16.1 10*3/uL (1.4-7.4); Neutrophils % 79.1 % (38.7-73.9); Platelet Count 192 T/CUMM (130-400); Red Blood Count 3.18 MC/CUMM (3.8-5.5); Red Cell Distribution Width 17.3 % (9.3-17.3); White Blood Count 20.4 T/CUMM (4-12)
[2018-01-03 06:34] LABS: Calcium 7.5 MG/DL (8.5-10.1); Osmolality,Calculated 295.1 MOS/KG (273-304); Potassium 3.2 MMOL/L (3.5-5.1)
[2018-01-03 06:54] LABS: Anisocytosis 1+; Band Neutrophils 10 % (0-10); Lymphocytes 18 % (20-55); Macrocytosis 1+; Platelet Estimate Normal; Segmented Neutrophils 68 % (50-85); Total Cells Counted 100
[2018-01-03 06:55] LABS: Polychromasia Slight; Target Cells Few
[2018-01-03] MEDS: DORNASE ALFA 2.5 MG/2.5 ML VIAL RESP TX SCH (07:10)
[2018-01-03] MEDS: cefTRIAXone 1,000 MG in SYRINGE 1 EACH IV SCH ×2 (09:44→22:37)
[2018-01-03] MEDS: MULTIVITAMIN (BEROCCA) TABLET PO SCH (09:45)
[2018-01-03] MEDS: LEVOFLOXACIN INJ 500 MG in PREMIX 1 EACH IV SCH (09:45)
[2018-01-03] MEDS: guaiFENesin/DM ER 600-30 MG TABLET PO SCH ×2 (09:45→22:40)
[2018-01-03] MEDS: CHOLECALCIFEROL 400 UNIT TABLET PO SCH (09:45)
[2018-01-03] MEDS: NYSTATIN 500,000 UNIT/5 ML UDCUP SWISH/SWAL SCH ×4 (09:45→22:39)
[2018-01-03] MEDS: METOCLOPRAMIDE 5 MG TABLET PO SCH ×2 (09:45→17:19)
[2018-01-03] MEDS: MEGESTROL 40 MG TABLET PO SCH ×2 (09:45→22:41)
[2018-01-03] MEDS: DILTIAZEM CD 120 MG CAPSULE PO SCH (09:45)
[2018-01-03] MEDS: PANTOPRAZOLE 40 MG TABLET PO SCH (09:45)
[2018-01-03] MEDS ORDERED: POTASSIUM CHLORIDE RIDER 10 MEQ in PREMIX 1 EACH IV PRN (10:08)
[2018-01-03] MEDS ORDERED: POTASSIUM CHLORIDE 20 MEQ TABLET PO PRN (10:08)
[2018-01-03] MEDS: CHOLESTYRAMINE 4 GM PACK PO SCH ×2 (10:17→22:38)
[2018-01-03] MEDS: LACTOBACILLUS ACIDOPHILUS/BULGARICUS CAPLET PO SCH (11:04)
[2018-01-03] MEDS ORDERED: DILTIAZEM 30 MG TABLET PO ONE (13:07)
[2018-01-03] MEDS ORDERED: METOPROLOL TARTRATE 25 MG TABLET PO ONE (14:07)
[2018-01-03] MEDS ORDERED: ZINC OXIDE PASTE 113 GM TUBE TOP PRN (14:28)
[2018-01-03] MEDS ORDERED: DEXTROSE 50% 25 GM/50 ML VIAL IV PRN (14:47)
[2018-01-03] MEDS ORDERED: GLUCAGON 1 MG VIAL IM PRN (14:47)
[2018-01-03] MEDS: metroNIDAZOLE 500 MG TABLET PO SCH ×2 (15:15→22:41)
[2018-01-03] MEDS: VANCOMYCIN 50 MG/ML 60 ML/BOTTLE PO SCH ×2 (15:15→17:19)
[2018-01-03] MEDS: INSULIN LISPRO 100 UNIT/ML SUBCUT SCH ×2 (17:19→23:04)
[2018-01-03] MEDS ORDERED: AZITHROMYCIN 250 MG TABLET PO SCH (21:00)
[2018-01-03] MEDS: ENOXAPARIN 30 MG/0.3 ML SYRINGE SUBCUT SCH (22:38)
[2018-01-03] MEDS: METOPROLOL TARTRATE 25 MG TABLET PO SCH (22:39)
[2018-01-04] MEDS: VANCOMYCIN 50 MG/ML 60 ML/BOTTLE PO SCH ×4 (01:11→17:44)
[2018-01-04] MEDS: ACETAMINOPHEN 325 MG TABLET PO PRN ×2 (01:12→23:00)
[2018-01-04] MEDS: methylPREDNISolone SOD SUC 40 MG/1 ML VIAL IV SCH ×2 (05:51→22:59)
[2018-01-04 06:46] LABS: Basophils % 0.2 % (0.0-0.8); Hematocrit 32.1 VOL% (35.7-47.0); Hemoglobin 10.5 GM/DL (12.0-16.0); Immature Granulocytes % 2.8 %; Immature Granulocytes Absolute 0.34 #; Lymphocytes # 1.3 10*3/uL (1.4-4.0); Lymphocytes % 10.2 % (21.3-54.2); Mean Corpuscular HGB Conc 32.7 GM/DL (32-36); Mean Corpuscular Hemoglobin 30 PG (27-34); Mean Platelet Volume 11.1 FL (9.6-12.0); Monocytes # 0.2 10*3/uL (0.11-0.8); Neutrophils # 10.4 10*3/uL (1.4-7.4); Neutrophils % 84.8 % (38.7-73.9); Platelet Count 185 T/CUMM (130-400); Red Blood Count 3.49 MC/CUMM (3.8-5.5); Red Cell Distribution Width 17.5 % (9.3-17.3); White Blood Count 12.2 T/CUMM (4-12)
[2018-01-04 07:26] LABS: Calcium 7.9 MG/DL (8.5-10.1); Potassium 3.4 MMOL/L (3.5-5.1)
[2018-01-04] MEDS: CHOLESTYRAMINE 4 GM PACK PO SCH ×2 (08:11→22:59)
[2018-01-04] MEDS: POTASSIUM CHLORIDE 20 MEQ/15 ML UDCUP PO SCH (08:11)
[2018-01-04] MEDS: MULTIVITAMIN (BEROCCA) TABLET PO SCH (09:46)
[2018-01-04] MEDS: DILTIAZEM CD 120 MG CAPSULE PO SCH (09:47)
[2018-01-04] MEDS: guaiFENesin/DM ER 600-30 MG TABLET PO SCH ×2 (09:47→23:00)
[2018-01-04] MEDS: METOCLOPRAMIDE 5 MG TABLET PO SCH ×2 (09:47→17:43)
[2018-01-04] MEDS: CHOLECALCIFEROL 400 UNIT TABLET PO SCH (09:47)
[2018-01-04] MEDS: MEGESTROL 40 MG TABLET PO SCH ×2 (09:47→23:01)
[2018-01-04] MEDS: PANTOPRAZOLE 40 MG TABLET PO SCH (09:47)
[2018-01-04] MEDS: LACTOBACILLUS ACIDOPHILUS/BULGARICUS CAPLET PO SCH (09:47)
[2018-01-04] MEDS: NYSTATIN 500,000 UNIT/5 ML UDCUP SWISH/SWAL SCH ×4 (09:48→23:05)
[2018-01-04] MEDS: metroNIDAZOLE 500 MG TABLET PO SCH ×3 (10:06→23:01)
[2018-01-04] MEDS: cefTRIAXone 1,000 MG in SYRINGE 1 EACH IV SCH (10:06)
[2018-01-04] MEDS: INSULIN LISPRO 100 UNIT/ML SUBCUT SCH ×4 (10:14→23:05)
[2018-01-04] MEDS: METOPROLOL TARTRATE 25 MG TABLET PO SCH ×2 (11:48→23:01)
[2018-01-05 06:08] LABS: Basophils # 0.1 10*3/uL (0.0-0.2); Basophils % 0.3 % (0.0-0.8); Hematocrit 31.7 VOL% (35.7-47.0); Hemoglobin 10.6 GM/DL (12.0-16.0); Immature Granulocytes % 2.4 %; Immature Granulocytes Absolute 0.34 #; Lymphocytes # 1.7 10*3/uL (1.4-4.0); Lymphocytes % 12.1 % (21.3-54.2); Mean Corpuscular HGB Conc 33.4 GM/DL (32-36); Mean Corpuscular Hemoglobin 30 PG (27-34); Mean Corpuscular Volume 90.6 FL (87-102); Mean Platelet Volume 11.8 FL (9.6-12.0); Monocytes # 0.9 10*3/uL (0.11-0.8); Monocytes % 6.1 % (1.7-12.7); Neutrophils # 11.4 10*3/uL (1.4-7.4); Neutrophils % 79.1 % (38.7-73.9); Platelet Count 164 T/CUMM (130-400); Red Cell Distribution Width 17.2 % (9.3-17.3); White Blood Count 14.4 T/CUMM (4-12)
[2018-01-05] MEDS: VANCOMYCIN 50 MG/ML 60 ML/BOTTLE PO SCH ×4 (06:27→17:24)
[2018-01-05 06:40] LABS: Calcium 8.1 MG/DL (8.5-10.1); Osmolality,Calculated 290.1 MOS/KG (273-304); Potassium 3.2 MMOL/L (3.5-5.1)
[2018-01-05] MEDS: LEVOFLOXACIN INJ 500 MG in PREMIX 1 EACH IV SCH (08:17)
[2018-01-05] MEDS: methylPREDNISolone SOD SUC 40 MG/1 ML VIAL IV SCH ×2 (08:17→21:56)
[2018-01-05] MEDS: LACTOBACILLUS ACIDOPHILUS/BULGARICUS CAPLET PO SCH (08:18)
[2018-01-05] MEDS: PANTOPRAZOLE 40 MG TABLET PO SCH (08:18)
[2018-01-05] MEDS: MULTIVITAMIN (BEROCCA) TABLET PO SCH (08:18)
[2018-01-05] MEDS: NYSTATIN 500,000 UNIT/5 ML UDCUP SWISH/SWAL SCH ×4 (08:18→21:55)
[2018-01-05] MEDS: METOCLOPRAMIDE 5 MG TABLET PO SCH ×3 (08:18→17:37)
[2018-01-05] MEDS: CHOLECALCIFEROL 400 UNIT TABLET PO SCH (08:18)
[2018-01-05] MEDS: MEGESTROL 40 MG TABLET PO SCH ×2 (08:18→21:56)
[2018-01-05] MEDS: guaiFENesin/DM ER 600-30 MG TABLET PO SCH ×2 (08:18→21:56)
[2018-01-05] MEDS: METOPROLOL TARTRATE 25 MG TABLET PO SCH ×2 (08:19→21:56)
[2018-01-05] MEDS: metroNIDAZOLE 500 MG TABLET PO SCH ×3 (08:19→21:56)
[2018-01-05] MEDS: DILTIAZEM CD 120 MG CAPSULE PO SCH (08:34)
[2018-01-05] MEDS: POTASSIUM CHLORIDE 20 MEQ TABLET PO SCH ×3 (08:39→16:17)
[2018-01-05] MEDS: INSULIN LISPRO 100 UNIT/ML SUBCUT SCH ×4 (09:40→21:58)
[2018-01-05] MEDS: POTASSIUM CHLORIDE 20 MEQ/15 ML UDCUP PO SCH (09:40)
[2018-01-05] MEDS: CHOLESTYRAMINE 4 GM PACK PO SCH ×2 (09:41→22:05)
[2018-01-05] MEDS ORDERED: POTASSIUM CHLORIDE 20 MEQ/15 ML UDCUP PO ONE (10:23)
[2018-01-05] MEDS ORDERED: DILTIAZEM CD 180 MG CAPSULE PO SCH (15:28)
[2018-01-06] MEDS: VANCOMYCIN 50 MG/ML 60 ML/BOTTLE PO SCH ×4 (00:15→18:46)
[2018-01-06 05:07] LABS: Basophils % 0.3 % (0.0-0.8); Hematocrit 37.6 VOL% (35.7-47.0); Immature Granulocytes % 2.8 %; Lymphocytes # 2.8 10*3/uL (1.4-4.0); Mean Corpuscular HGB Conc 31.9 GM/DL (32-36); Mean Corpuscular Hemoglobin 30 PG (27-34); Mean Platelet Volume 11.6 FL (9.6-12.0); Monocytes # 0.7 10*3/uL (0.11-0.8); Neutrophils # 10.2 10*3/uL (1.4-7.4); Neutrophils % 71.9 % (38.7-73.9); Platelet Count 166 T/CUMM (130-400); Red Cell Distribution Width 17.3 % (9.3-17.3); White Blood Count 14.1 T/CUMM (4-12)
[2018-01-06 05:37] LABS: Calcium 8.5 MG/DL (8.5-10.1); Potassium 4.2 MMOL/L (3.5-5.1)
[2018-01-06] MEDS: INSULIN LISPRO 100 UNIT/ML SUBCUT SCH ×4 (08:37→22:44)
[2018-01-06] MEDS ORDERED: DILTIAZEM CD 240 MG CAPSULE PO SCH (09:00)
[2018-01-06] MEDS: CHOLESTYRAMINE 4 GM PACK PO SCH ×2 (09:33→21:25)
[2018-01-06] MEDS: hydrALAZINE 25 MG TABLET PO SCH ×2 (09:34→21:24)
[2018-01-06] MEDS: LACTOBACILLUS ACIDOPHILUS/BULGARICUS CAPLET PO SCH (09:35)
[2018-01-06] MEDS: metroNIDAZOLE 500 MG TABLET PO SCH ×3 (09:35→21:24)
[2018-01-06] MEDS: PANTOPRAZOLE 40 MG TABLET PO SCH (09:35)
[2018-01-06] MEDS: MULTIVITAMIN (BEROCCA) TABLET PO SCH (09:35)
[2018-01-06] MEDS: METOCLOPRAMIDE 5 MG TABLET PO SCH ×2 (09:35→18:46)
[2018-01-06] MEDS: CHOLECALCIFEROL 400 UNIT TABLET PO SCH (09:35)
[2018-01-06] MEDS: guaiFENesin/DM ER 600-30 MG TABLET PO SCH ×2 (09:35→21:24)
[2018-01-06] MEDS: METOPROLOL TARTRATE 25 MG TABLET PO SCH ×2 (09:36→21:25)
[2018-01-06] MEDS: MEGESTROL 40 MG TABLET PO SCH ×2 (09:36→21:24)
[2018-01-06] MEDS: methylPREDNISolone SOD SUC 40 MG/1 ML VIAL IV SCH ×2 (09:39→21:25)
[2018-01-06] MEDS: NYSTATIN 500,000 UNIT/5 ML UDCUP SWISH/SWAL SCH ×4 (09:43→21:24)
[2018-01-06] MEDS: POTASSIUM CHLORIDE 20 MEQ/15 ML UDCUP PO SCH (09:46)
[2018-01-06] MEDS ORDERED: METOPROLOL TARTRATE 5 MG/5 ML VIAL IV ONE ×3 (11:22→12:00)
[2018-01-06] MEDS ORDERED: DILTIAZEM 50 MG/10 ML VIAL IV ONE (12:07)
[2018-01-06 12:44] LABS: Basophils % 0.3 % (0.0-0.8); Hematocrit 35.1 VOL% (35.7-47.0); Hemoglobin 11.1 GM/DL (12.0-16.0); Immature Granulocytes Absolute 0.43 #; Lymphocytes # 1.5 10*3/uL (1.4-4.0); Lymphocytes % 10.9 % (21.3-54.2); Mean Corpuscular HGB Conc 31.6 GM/DL (32-36); Mean Corpuscular Hemoglobin 30 PG (27-34); Mean Corpuscular Volume 95.1 FL (87-102); Mean Platelet Volume 11.9 FL (9.6-12.0); Monocytes # 0.5 10*3/uL (0.11-0.8); Monocytes % 3.7 % (1.7-12.7); Neutrophils # 11.7 10*3/uL (1.4-7.4); Neutrophils % 82.1 % (38.7-73.9); Platelet Count 158 T/CUMM (130-400); Red Blood Count 3.69 MC/CUMM (3.8-5.5); Red Cell Distribution Width 17.4 % (9.3-17.3); White Blood Count 14.2 T/CUMM (4-12)
[2018-01-06] MEDS: DILTIAZEM INJ 100 MG in SODIUM CHLORIDE 0.9% 100 ML IV SCH (12:56)
[2018-01-06 13:00] LABS: Albumin 1.6 G/DL (3.4-5.0); Bilirubin,Total 0.8 MG/DL (0.2-1.0); Osmolality,Calculated 294.3 MOS/KG (273-304); Potassium 4.1 MMOL/L (3.5-5.1); Total Protein 5.6 G/DL (6.4-8.3)
[2018-01-06] MEDS ORDERED: METOPROLOL TARTRATE 25 MG TABLET PO ONE (18:50)
[2018-01-06] MEDS ORDERED: ALUMINUM/MAGNES/SIMETH MAX STR 30 ML UDCUP PO PRN (19:59)
[2018-01-07] MEDS: DILTIAZEM INJ 100 MG in SODIUM CHLORIDE 0.9% 100 ML IV SCH ×3 (03:17→19:25)
[2018-01-07] MEDS: VANCOMYCIN 50 MG/ML 60 ML/BOTTLE PO SCH ×5 (05:46→23:57)
[2018-01-07] MEDS: INSULIN LISPRO 100 UNIT/ML SUBCUT SCH ×4 (07:52→21:11)
[2018-01-07] MEDS: CHOLESTYRAMINE 4 GM PACK PO SCH ×2 (08:36→20:59)
[2018-01-07] MEDS: MULTIVITAMIN (BEROCCA) TABLET PO SCH (08:37)
[2018-01-07] MEDS: METOPROLOL TARTRATE 25 MG TABLET PO SCH ×2 (08:38→21:00)
[2018-01-07] MEDS: metroNIDAZOLE 500 MG TABLET PO SCH (08:38)
[2018-01-07] MEDS: guaiFENesin/DM ER 600-30 MG TABLET PO SCH ×2 (08:38→20:59)
[2018-01-07] MEDS: CHOLECALCIFEROL 400 UNIT TABLET PO SCH (08:38)
[2018-01-07] MEDS: LACTOBACILLUS ACIDOPHILUS/BULGARICUS CAPLET PO SCH (08:38)
[2018-01-07] MEDS: METOCLOPRAMIDE 5 MG TABLET PO SCH ×2 (08:38→17:35)
[2018-01-07] MEDS: NYSTATIN 500,000 UNIT/5 ML UDCUP SWISH/SWAL SCH ×4 (08:39→20:59)
[2018-01-07] MEDS: POTASSIUM CHLORIDE 20 MEQ/15 ML UDCUP PO SCH (08:39)
[2018-01-07] MEDS: MEGESTROL 40 MG TABLET PO SCH ×2 (08:39→21:00)
[2018-01-07] MEDS: PANTOPRAZOLE 40 MG TABLET PO SCH (08:39)
[2018-01-07] MEDS: hydrALAZINE 25 MG TABLET PO SCH ×2 (08:39→21:00)
[2018-01-07] MEDS: methylPREDNISolone SOD SUC 40 MG/1 ML VIAL IV SCH ×2 (08:54→20:59)
[2018-01-07] MEDS: LEVOFLOXACIN INJ 500 MG in PREMIX 1 EACH IV SCH (08:54)
[2018-01-07] MEDS: AMPICILLIN INJ 2,000 MG in SODIUM CHLORIDE 0.9% 100 ML IV SCH (14:28)
[2018-01-07] MEDS: DILTIAZEM 90 MG TABLET PO SCH ×2 (17:35→21:00)
[2018-01-07] MEDS: ACETAMINOPHEN 325 MG TABLET PO PRN (21:00)
[2018-01-07] MEDS ORDERED: AMIODARONE INJ 450 MG in DEXTROSE 5% 241 ML IV SCH (21:30)
[2018-01-08 03:33] LABS: Basophils % 0.2 % (0.0-0.8); Hematocrit 33.1 VOL% (35.7-47.0); Hemoglobin 11.1 GM/DL (12.0-16.0); Immature Granulocytes % 2.1 %; Immature Granulocytes Absolute 0.19 #; Lymphocytes # 0.8 10*3/uL (1.4-4.0); Lymphocytes % 8.5 % (21.3-54.2); Mean Corpuscular HGB Conc 33.5 GM/DL (32-36); Mean Corpuscular Hemoglobin 30 PG (27-34); Mean Corpuscular Volume 89.9 FL (87-102); Mean Platelet Volume 12.2 FL (9.6-12.0); Monocytes # 0.2 10*3/uL (0.11-0.8); Monocytes % 1.8 % (1.7-12.7); Neutrophils % 87.4 % (38.7-73.9); Platelet Count 171 T/CUMM (130-400); Red Blood Count 3.68 MC/CUMM (3.8-5.5); Red Cell Distribution Width 16.9 % (9.3-17.3); White Blood Count 9.1 T/CUMM (4-12)
[2018-01-08 04:00] LABS: Calcium 7.8 MG/DL (8.5-10.1); Osmolality,Calculated 296.4 MOS/KG (273-304); Potassium 4.5 MMOL/L (3.5-5.1)
[2018-01-08 04:03] LABS: Calcium 8.2 MG/DL (8.5-10.1); Osmolality,Calculated 296.4 MOS/KG (273-304); Potassium 4.4 MMOL/L (3.5-5.1)
[2018-01-08] MEDS: AMIODARONE INJ 450 MG in DEXTROSE 5% 241 ML IV SCH ×3 (04:16→21:11)
[2018-01-08] MEDS: VANCOMYCIN 50 MG/ML 60 ML/BOTTLE PO SCH ×3 (05:18→17:17)
[2018-01-08] MEDS ORDERED: AMIODARONE INJ 450 MG in DEXTROSE 5% 241 ML IV SCH (07:30)
[2018-01-08] MEDS: METOCLOPRAMIDE 5 MG TABLET PO SCH ×2 (08:45→16:09)
[2018-01-08] MEDS: LACTOBACILLUS ACIDOPHILUS/BULGARICUS CAPLET PO SCH (08:46)
[2018-01-08] MEDS: MULTIVITAMIN (BEROCCA) TABLET PO SCH (08:46)
[2018-01-08] MEDS: INSULIN LISPRO 100 UNIT/ML SUBCUT SCH ×4 (08:46→21:02)
[2018-01-08] MEDS: MEGESTROL 40 MG TABLET PO SCH ×2 (08:46→21:01)
[2018-01-08] MEDS: guaiFENesin/DM ER 600-30 MG TABLET PO SCH ×2 (08:46→21:01)
[2018-01-08] MEDS: PANTOPRAZOLE 40 MG TABLET PO SCH (08:46)
[2018-01-08] MEDS: METOPROLOL TARTRATE 25 MG TABLET PO SCH ×2 (08:46→21:01)
[2018-01-08] MEDS: CHOLECALCIFEROL 400 UNIT TABLET PO SCH (08:46)
[2018-01-08] MEDS: hydrALAZINE 25 MG TABLET PO SCH ×2 (08:47→21:01)
[2018-01-08] MEDS: methylPREDNISolone SOD SUC 40 MG/1 ML VIAL IV SCH ×2 (08:47→21:02)
[2018-01-08] MEDS: NYSTATIN 500,000 UNIT/5 ML UDCUP SWISH/SWAL SCH ×4 (08:47→21:00)
[2018-01-08] MEDS: POTASSIUM CHLORIDE 20 MEQ/15 ML UDCUP PO SCH (08:47)
[2018-01-08] MEDS: CHOLESTYRAMINE 4 GM PACK PO SCH ×2 (08:48→21:02)
[2018-01-08] MEDS: AMPICILLIN INJ 2,000 MG in SODIUM CHLORIDE 0.9% 100 ML IV SCH (17:18)
[2018-01-08] MEDS: DILTIAZEM INJ 100 MG in SODIUM CHLORIDE 0.9% 100 ML IV SCH (20:59)
[2018-01-09] MEDS: VANCOMYCIN 50 MG/ML 60 ML/BOTTLE PO SCH ×4 (00:46→17:51)
[2018-01-09 03:47] LABS: Basophils % 0.2 % (0.0-0.8); Hematocrit 29.1 VOL% (35.7-47.0); Hemoglobin 9.5 GM/DL (12.0-16.0); Immature Granulocytes % 1.6 %; Immature Granulocytes Absolute 0.25 #; Lymphocytes # 1.3 10*3/uL (1.4-4.0); Lymphocytes % 8.6 % (21.3-54.2); Mean Corpuscular HGB Conc 32.6 GM/DL (32-36); Mean Corpuscular Hemoglobin 30 PG (27-34); Mean Corpuscular Volume 92.1 FL (87-102); Mean Platelet Volume 12.1 FL (9.6-12.0); Monocytes # 0.4 10*3/uL (0.11-0.8); Monocytes % 2.4 % (1.7-12.7); Neutrophils # 13.4 10*3/uL (1.4-7.4); Neutrophils % 87.2 % (38.7-73.9); Platelet Count 180 T/CUMM (130-400); Red Blood Count 3.16 MC/CUMM (3.8-5.5); Red Cell Distribution Width 16.7 % (9.3-17.3); White Blood Count 15.3 T/CUMM (4-12)
[2018-01-09 04:15] LABS: Calcium 8.1 MG/DL (8.5-10.1); Osmolality,Calculated 300.8 MOS/KG (273-304); Potassium 4.8 MMOL/L (3.5-5.1)
[2018-01-09 04:16] LABS: Calcium 7.9 MG/DL (8.5-10.1); Osmolality,Calculated 300.7 MOS/KG (273-304); Potassium 4.8 MMOL/L (3.5-5.1)
[2018-01-09] MEDS: POTASSIUM CHLORIDE 20 MEQ/15 ML UDCUP PO SCH (14:06)
[2018-01-09] MEDS: LACTOBACILLUS ACIDOPHILUS/BULGARICUS CAPLET PO SCH (14:07)
[2018-01-09] MEDS: guaiFENesin/DM ER 600-30 MG TABLET PO SCH ×2 (14:07→21:42)
[2018-01-09] MEDS: METOCLOPRAMIDE 5 MG TABLET PO SCH ×2 (14:07→17:34)
[2018-01-09] MEDS: hydrALAZINE 25 MG TABLET PO SCH ×2 (14:07→21:42)
[2018-01-09] MEDS: MULTIVITAMIN (BEROCCA) TABLET PO SCH (14:08)
[2018-01-09] MEDS: NYSTATIN 500,000 UNIT/5 ML UDCUP SWISH/SWAL SCH ×4 (14:08→21:42)
[2018-01-09] MEDS: PANTOPRAZOLE 40 MG TABLET PO SCH (14:08)
[2018-01-09] MEDS: CHOLECALCIFEROL 400 UNIT TABLET PO SCH (14:08)
[2018-01-09] MEDS: MEGESTROL 40 MG TABLET PO SCH ×2 (14:08→21:42)
[2018-01-09] MEDS: METOPROLOL TARTRATE 25 MG TABLET PO SCH ×2 (14:08→21:42)
[2018-01-09] MEDS: AMIODARONE 200 MG TABLET PO SCH ×2 (14:08→21:42)
[2018-01-09] MEDS: CHOLESTYRAMINE 4 GM PACK PO SCH ×2 (14:12→21:42)
[2018-01-09] MEDS: methylPREDNISolone SOD SUC 40 MG/1 ML VIAL IV SCH (14:53)
[2018-01-09] MEDS: INSULIN LISPRO 100 UNIT/ML SUBCUT SCH ×3 (14:54→22:05)
[2018-01-09] MEDS: AMPICILLIN INJ 2,000 MG in SODIUM CHLORIDE 0.9% 100 ML IV SCH (17:35)
[2018-01-09] MEDS ORDERED: ROSUVASTATIN 20 MG TABLET PO SCH (21:00)
[2018-01-10 06:09] LABS: Basophils % 0.1 % (0.0-0.8); Eosinophils % 0.1 % (0.00-10.9); Hemoglobin 8.4 GM/DL (12.0-16.0); Immature Granulocytes % 1.1 %; Immature Granulocytes Absolute 0.18 #; Lymphocytes # 3.1 10*3/uL (1.4-4.0); Lymphocytes % 19.1 % (21.3-54.2); Mean Corpuscular HGB Conc 33.6 GM/DL (32-36); Mean Corpuscular Hemoglobin 31 PG (27-34); Mean Corpuscular Volume 90.9 FL (87-102); Mean Platelet Volume 11.9 FL (9.6-12.0); Monocytes # 0.8 10*3/uL (0.11-0.8); Monocytes % 5.1 % (1.7-12.7); Neutrophils # 11.9 10*3/uL (1.4-7.4); Neutrophils % 74.5 % (38.7-73.9); Platelet Count 140 T/CUMM (130-400); Red Blood Count 2.75 MC/CUMM (3.8-5.5)
[2018-01-10 06:23] LABS: Calcium 7.5 MG/DL (8.5-10.1); Osmolality,Calculated 297.1 MOS/KG (273-304); Potassium 4.6 MMOL/L (3.5-5.1)
[2018-01-10 06:24] LABS: Calcium 7.6 MG/DL (8.5-10.1); Osmolality,Calculated 295.3 MOS/KG (273-304); Potassium 4.6 MMOL/L (3.5-5.1)
[2018-01-10] MEDS: VANCOMYCIN 50 MG/ML 60 ML/BOTTLE PO SCH ×4 (06:29→21:17)
[2018-01-10] MEDS: methylPREDNISolone SOD SUC 40 MG/1 ML VIAL IV SCH (08:41)
[2018-01-10] MEDS: CHOLESTYRAMINE 4 GM PACK PO SCH ×2 (08:41→22:24)
[2018-01-10] MEDS: POTASSIUM CHLORIDE 20 MEQ/15 ML UDCUP PO SCH (08:42)
[2018-01-10] MEDS: CHOLECALCIFEROL 400 UNIT TABLET PO SCH (08:42)
[2018-01-10] MEDS: LACTOBACILLUS ACIDOPHILUS/BULGARICUS CAPLET PO SCH (08:43)
[2018-01-10] MEDS: METOCLOPRAMIDE 5 MG TABLET PO SCH ×2 (08:43→17:32)
[2018-01-10] MEDS: NYSTATIN 500,000 UNIT/5 ML UDCUP SWISH/SWAL SCH ×4 (08:43→22:28)
[2018-01-10] MEDS: AMIODARONE 200 MG TABLET PO SCH ×2 (08:44→22:27)
[2018-01-10] MEDS: MEGESTROL 40 MG TABLET PO SCH ×2 (08:44→22:27)
[2018-01-10] MEDS: guaiFENesin/DM ER 600-30 MG TABLET PO SCH ×2 (08:44→22:27)
[2018-01-10] MEDS: MULTIVITAMIN (BEROCCA) TABLET PO SCH (08:44)
[2018-01-10] MEDS: hydrALAZINE 25 MG TABLET PO SCH ×2 (08:44→22:28)
[2018-01-10] MEDS: METOPROLOL TARTRATE 25 MG TABLET PO SCH ×2 (08:44→22:27)
[2018-01-10] MEDS: INSULIN LISPRO 100 UNIT/ML SUBCUT SCH ×3 (08:45→17:31)
[2018-01-10] MEDS: PANTOPRAZOLE 40 MG TABLET PO SCH ×2 (12:14→22:28)
[2018-01-10] MEDS ORDERED: SODIUM CHLORIDE 0.9% 1,000 ML IV PRN (13:24)
[2018-01-10] MEDS: AMPICILLIN INJ 2,000 MG in SODIUM CHLORIDE 0.9% 100 ML IV SCH (21:16)
[2018-01-11] MEDS: INSULIN LISPRO 100 UNIT/ML SUBCUT SCH ×3 (00:23→12:55)
[2018-01-11] MEDS: VANCOMYCIN 50 MG/ML 60 ML/BOTTLE PO SCH ×3 (01:15→13:12)
[2018-01-11 07:05] LABS: Calcium 7.6 MG/DL (8.5-10.1); Osmolality,Calculated 304.7 MOS/KG (273-304); Potassium 4.4 MMOL/L (3.5-5.1)
[2018-01-11 10:44] LABS: Basophils % 0.2 % (0.0-0.8); Eosinophils % 0.1 % (0.00-10.9); Hemoglobin 9.9 GM/DL (12.0-16.0); Immature Granulocytes Absolute 0.81 #; Mean Corpuscular Volume 92.8 FL (87-102)
[2018-01-11] MEDS: PANTOPRAZOLE 40 MG TABLET PO SCH (10:59)
[2018-01-11] MEDS: MULTIVITAMIN (BEROCCA) TABLET PO SCH (10:59)
[2018-01-11] MEDS: POTASSIUM CHLORIDE 20 MEQ/15 ML UDCUP PO SCH (10:59)
[2018-01-11] MEDS: guaiFENesin/DM ER 600-30 MG TABLET PO SCH (10:59)
[2018-01-11] MEDS: CHOLESTYRAMINE 4 GM PACK PO SCH (10:59)
[2018-01-11] MEDS: AMIODARONE 200 MG TABLET PO SCH (10:59)
[2018-01-11] MEDS: hydrALAZINE 25 MG TABLET PO SCH (11:00)
[2018-01-11] MEDS: METOCLOPRAMIDE 5 MG TABLET PO SCH (11:00)
[2018-01-11] MEDS: CHOLECALCIFEROL 400 UNIT TABLET PO SCH (11:00)
[2018-01-11] MEDS: METOPROLOL TARTRATE 25 MG TABLET PO SCH (11:00)
[2018-01-11] MEDS: MEGESTROL 40 MG TABLET PO SCH (11:00)
[2018-01-11] MEDS: LACTOBACILLUS ACIDOPHILUS/BULGARICUS CAPLET PO SCH (11:00)
[2018-01-11] MEDS: methylPREDNISolone SOD SUC 40 MG/1 ML VIAL IV SCH (11:01)
[2018-01-11 11:03] LABS: Basophils # 0.1 10*3/uL (0.0-0.2); Hematocrit 29.8 VOL% (35.7-47.0); Lymphocytes % 4.9 % (21.3-54.2); Mean Corpuscular HGB Conc 33.2 GM/DL (32-36); Mean Corpuscular Hemoglobin 31 PG (27-34); Mean Platelet Volume 11.3 FL (9.6-12.0); Monocytes # 1.4 10*3/uL (0.11-0.8); Monocytes % 3.3 % (1.7-12.7); Neutrophils # 36.2 10*3/uL (1.4-7.4); Neutrophils % 89.5 % (38.7-73.9); Platelet Count 128 T/CUMM (130-400); Red Blood Count 3.21 MC/CUMM (3.8-5.5)
[2018-01-11 11:07] LABS: White Blood Count 40.4 T/CUMM (4-12)
[2018-01-11] MEDS: NYSTATIN 500,000 UNIT/5 ML UDCUP SWISH/SWAL SCH (11:11)
[2018-01-11 11:12] LABS: Anisocytosis 1+; Band Neutrophils 6 % (0-10); Eosinophils 1 % (0-10); Lymphocytes 3 % (20-55); Macrocytosis 1+; Platelet Estimate Adequate; Poikilocytosis 1+; Segmented Neutrophils 87 % (50-85); Total Cells Counted 100
[2018-01-11 12:55] VITALS: BP 112/59
== END 2018-01-11 12:50 | disposition home health service (06) | DRG 371 ==
LOC: N.ED 11:50 → N.EDINP 15:54 → SUATTDRO 15:54 → N.EDINP 18:16 → N.5E 18:44 → N.TELEN 01-06 12:35
PROVIDERS: ADMIT Hospitalist

== ENCOUNTER 2018-01-16 14:39 | Observation (INO) ==
[2018-01-16 15:34] LABS: Basophils % 0.1 % (0.0-0.8); Eosinophils # 0.1 10*3/uL (0.0-0.87); Hematocrit 21.7 VOL% (35.7-47.0); Hemoglobin 7.3 GM/DL (12.0-16.0); Immature Granulocytes % 0.8 %; Immature Granulocytes Absolute 0.07 #; Lymphocytes # 1.8 10*3/uL (1.4-4.0); Lymphocytes % 19.9 % (21.3-54.2); Mean Corpuscular HGB Conc 33.6 GM/DL (32-36); Mean Corpuscular Hemoglobin 31 PG (27-34); Mean Corpuscular Volume 93.1 FL (87-102); Mean Platelet Volume 12.1 FL (9.6-12.0); Monocytes # 0.9 10*3/uL (0.11-0.8); Monocytes % 10.3 % (1.7-12.7); Neutrophils # 6.1 10*3/uL (1.4-7.4); Neutrophils % 67.9 % (38.7-73.9); Platelet Count 187 T/CUMM (130-400); Red Blood Count 2.33 MC/CUMM (3.8-5.5); Red Cell Distribution Width 16.1 % (9.3-17.3)
[2018-01-16 15:40] LABS: INR 0.9; PT Patient Result 9.5 SECS; Partial Thromboplastin Time 23.8 SECS (0-40)
[2018-01-16 15:49] LABS: Lactic Acid 2.5 MMOL/L (0.4-2.0)
[2018-01-16 15:50] LABS: Albumin 1.6 G/DL (3.4-5.0); Bilirubin,Total 0.4 MG/DL (0.2-1.0); Calcium 7.6 MG/DL (8.5-10.1); Osmolality,Calculated 295.4 MOS/KG (273-304); Potassium 3.7 MMOL/L (3.5-5.1); Total Protein 5.1 G/DL (6.4-8.3)
[2018-01-16 15:57] LABS: ABG Base Excess 1.8 MMOL/L (-2.5-2.5); ABG Oxygen Saturation 98.1 % (95-100); ABG PCO2 37.1 MM HG (35-48); ABG PH 7.449 (7.35-7.45); ABG TCO2 24.2 MMOL/L (23-27); Allen Test Positive
[2018-01-16 15:57] LABS: Troponin I Only 0.081 NG/ML (0.00-0.045)
[2018-01-16] MEDS ORDERED: ALBUTEROL 2.5 MG/3 ML NEB RESP TX PRN (17:23)
[2018-01-16] MEDS ORDERED: SODIUM CHLORIDE 0.9% 1,000 ML IV PRN (17:24)
[2018-01-16] MEDS ORDERED: DEXTROSE 50% 25 GM/50 ML VIAL IV PRN (17:27)
[2018-01-16] MEDS ORDERED: GLUCAGON 1 MG VIAL IM PRN (17:27)
[2018-01-16] MEDS: VANCOMYCIN 50 MG/ML 60 ML/BOTTLE PO SCH ×2 (20:06→23:48)
[2018-01-16] MEDS ORDERED: INSULIN NPH 100 UNIT/ML SUBCUT SCH (21:00)
[2018-01-16] MEDS: MEGESTROL 40 MG TABLET PO SCH (21:52)
[2018-01-16] MEDS: PANTOPRAZOLE 40 MG TABLET PO SCH (21:52)
[2018-01-16] MEDS: METOPROLOL TARTRATE 25 MG TABLET PO SCH (21:52)
[2018-01-16] MEDS: hydrALAZINE 25 MG TABLET PO SCH (21:52)
[2018-01-16] MEDS: INSULIN LISPRO 100 UNIT/ML SUBCUT SCH (21:53)
[2018-01-17 02:24] LABS: Hematocrit 32.2 VOL% (35.7-47.0); Hemoglobin 11.1 GM/DL (12.0-16.0)
[2018-01-17] MEDS: VANCOMYCIN 50 MG/ML 60 ML/BOTTLE PO SCH (06:10)
[2018-01-17 07:17] LABS: Calcium 7.4 MG/DL (8.5-10.1); Osmolality,Calculated 287.1 MOS/KG (273-304); Potassium 3.6 MMOL/L (3.5-5.1)
[2018-01-17] MEDS ORDERED: METOCLOPRAMIDE 5 MG TABLET PO SCH (07:30)
[2018-01-17] MEDS: INSULIN LISPRO 100 UNIT/ML SUBCUT SCH (07:42)
[2018-01-17 08:03] VITALS: BP 156/75
[2018-01-17] MEDS ORDERED: ONDANSETRON 4 MG/2 ML VIAL IV PRN (08:32)
[2018-01-17] MEDS ORDERED: PHENOL 1.4% THROAT SPRAY 177 ML BOTTLE PO PRN (08:33)
[2018-01-17] MEDS ORDERED: AZITHROMYCIN 250 MG TABLET PO SCH (09:00)
[2018-01-17] MEDS ORDERED: MULTIVITAMIN (BEROCCA) TABLET PO SCH (09:00)
[2018-01-17] MEDS ORDERED: RENAL PO SCH (09:00)
[2018-01-17] MEDS ORDERED: DILTIAZEM CD 120 MG CAPSULE PO SCH (09:00)
[2018-01-17] MEDS ORDERED: AMIODARONE 200 MG TABLET PO SCH (09:00)
[2018-01-17] MEDS: hydrALAZINE 25 MG TABLET PO SCH (09:39)
[2018-01-17] MEDS: PANTOPRAZOLE 40 MG TABLET PO SCH (09:39)
[2018-01-17] MEDS: MEGESTROL 40 MG TABLET PO SCH (09:39)
[2018-01-17] MEDS: METOPROLOL TARTRATE 25 MG TABLET PO SCH (09:39)
== END 2018-01-17 11:40 | disposition home or self-care (01) ==
LOC: EDBD → EDUNIT# → N.EDINP 14:39 → N.ED 14:39 → N.EDINP 20:07 → N.2E 20:08
PROVIDERS: ADMIT Hospitalist; ATTEND Hospitalist

== ENCOUNTER 2018-02-10 11:05 | Observation (INO) ==
[2018-02-10 12:08] LABS: Potassium 3.7 MMOL/L (3.5-5.1); Sodium 139 MMOL/L (136-145)
[2018-02-10 12:10] LABS: Calcium 8.6 MG/DL (8.5-10.1)
[2018-02-10 12:11] LABS: Albumin 2.3 G/DL (3.4-5.0)
[2018-02-10 12:12] LABS: Blood Urea Nitrogen 53 MG/DL (7-18); Glucose 173 MG/DL (74-106); Osmolality,Calculated 294.5 MOS/KG (273-304)
[2018-02-10 12:15] LABS: Alanine Aminotransferase 30 U/L (13-56); Aspartate Amino Transferase 33 U/L (0-37)
[2018-02-10 12:16] LABS: Bilirubin,Total < 0.39 MG/DL (0.2-1.0)
[2018-02-10 12:18] LABS: Alkaline Phosphatase 153 U/L (45-117)
[2018-02-10 14:35] LABS: Basophils # 0.1 10*3/uL (0.0-0.2); Basophils % 0.3 % (0.0-0.8); Eosinophils % 0.1 % (0.00-10.9); Hematocrit 42.1 VOL% (35.7-47.0); Hemoglobin 13.7 GM/DL (12.0-16.0); Immature Granulocytes % 0.7 %; Immature Granulocytes Absolute 0.11 #; Lymphocytes # 3.6 10*3/uL (1.4-4.0); Lymphocytes % 23.8 % (21.3-54.2); Mean Corpuscular HGB Conc 32.5 GM/DL (32-36); Mean Corpuscular Hemoglobin 31 PG (27-34); Mean Corpuscular Volume 95.7 FL (87-102); Mean Platelet Volume 11.2 FL (9.6-12.0); Monocytes # 1.2 10*3/uL (0.11-0.8); Monocytes % 7.8 % (1.7-12.7); NRBC # 0.02 10*3/uL; Neutrophils # 10.1 10*3/uL (1.4-7.4); Neutrophils % 67.3 % (38.7-73.9); Platelet Count 214 T/CUMM (130-400); Red Cell Distribution Width 23.5 % (9.3-17.3)
[2018-02-10] MEDS ORDERED: ONDANSETRON 4 MG/2 ML VIAL IV PRN (15:31)
[2018-02-10] MEDS ORDERED: PROMETHAZINE 25 MG/1 ML VIAL IM PRN (15:31)
[2018-02-10] MEDS ORDERED: ACETAMINOPHEN 325 MG TABLET PO PRN (15:31)
[2018-02-10] MEDS ORDERED: ALBUTEROL 2.5 MG/3 ML NEB RESP TX PRN (15:39)
[2018-02-10] MEDS ORDERED: DEXTROSE 50% 25 GM/50 ML VIAL IV PRN (15:42)
[2018-02-10] MEDS ORDERED: GLUCAGON 1 MG VIAL IM PRN (15:42)
[2018-02-10 17:23] LABS: Hypochromasia 1+; Macrocytosis 1+; Platelet Estimate Adequate; Polychromasia Few
[2018-02-10] MEDS: INSULIN LISPRO 100 UNIT/ML SUBCUT SCH ×2 (18:17→21:15)
[2018-02-10] MEDS: METOCLOPRAMIDE 5 MG TABLET PO SCH (18:22)
[2018-02-10] MEDS: traMADol 50 MG TABLET PO SCH ×2 (18:47→21:17)
[2018-02-10] MEDS: GABAPENTIN 100 MG CAPSULE PO SCH ×2 (18:47→21:12)
[2018-02-10] MEDS ORDERED: ASPIRIN CHEW 81 MG TABLET PO ONE (18:52)
[2018-02-10] MEDS: ALBUTEROL/IPRATROPIUM 3 ML NEB RESP TX SCH (19:10)
[2018-02-10] MEDS: LACTOBACILLUS ACIDOPHILUS/BULGARICUS CAPLET PO SCH (21:11)
[2018-02-10] MEDS: ENOXAPARIN 30 MG/0.3 ML SYRINGE SUBCUT SCH (21:12)
[2018-02-10] MEDS: MEGESTROL 40 MG TABLET PO SCH (21:12)
[2018-02-10] MEDS: hydrALAZINE 25 MG TABLET PO SCH (21:16)
[2018-02-10] MEDS: METOPROLOL TARTRATE 25 MG TABLET PO SCH (21:16)
[2018-02-10] MEDS: INSULIN NPH 100 UNIT/ML SUBCUT SCH (21:16)
[2018-02-10] MEDS: PANTOPRAZOLE 40 MG TABLET PO SCH (21:17)
[2018-02-11 05:16] LABS: Basophils # 0.1 10*3/uL (0.0-0.2); Basophils % 0.3 % (0.0-0.8); Eosinophils % 0.1 % (0.00-10.9); Hematocrit 37.2 VOL% (35.7-47.0); Hemoglobin 12.2 GM/DL (12.0-16.0); Immature Granulocytes % 1.5 %; Immature Granulocytes Absolute 0.23 #; Lymphocytes # 3.1 10*3/uL (1.4-4.0); Lymphocytes % 20.6 % (21.3-54.2); Mean Corpuscular HGB Conc 32.8 GM/DL (32-36); Mean Corpuscular Hemoglobin 31 PG (27-34); Mean Platelet Volume 10.8 FL (9.6-12.0); Monocytes # 1.5 10*3/uL (0.11-0.8); Monocytes % 10.2 % (1.7-12.7); NRBC # 0.05 10*3/uL; Neutrophils # 10.1 10*3/uL (1.4-7.4); Neutrophils % 67.3 % (38.7-73.9); Platelet Count 203 T/CUMM (130-400); Red Cell Distribution Width 22.5 % (9.3-17.3)
[2018-02-11 05:37] LABS: Burr Cells Slight; Giant Platelets Few; Hypochromasia 1+; Macrocytosis Slight; Platelet Estimate Adequate; Polychromasia Slight
[2018-02-11 05:54] LABS: Albumin 1.9 G/DL (3.4-5.0); Bilirubin,Total 0.4 MG/DL (0.2-1.0); Calcium 7.8 MG/DL (8.5-10.1); Osmolality,Calculated 290.8 MOS/KG (273-304); Potassium 3.7 MMOL/L (3.5-5.1); Risk Ratio 1.57; Thyroid Stimulating Hormone 3.51 uIU/ml (0.358-3.74); Total Protein 5.7 G/DL (6.4-8.3); VLDL CHOLESTEROL 19.2 MG/DL
[2018-02-11] MEDS: INSULIN LISPRO 100 UNIT/ML SUBCUT SCH ×4 (08:19→22:14)
[2018-02-11 09:52] LABS: Troponin I 0.047 NG/ML (0.00-0.045)
[2018-02-11] MEDS: GABAPENTIN 100 MG CAPSULE PO SCH ×3 (09:53→21:04)
[2018-02-11] MEDS: LACTOBACILLUS ACIDOPHILUS/BULGARICUS CAPLET PO SCH ×2 (09:53→21:04)
[2018-02-11] MEDS: PANTOPRAZOLE 40 MG TABLET PO SCH ×3 (09:53→21:04)
[2018-02-11] MEDS: AMIODARONE 200 MG TABLET PO SCH (09:53)
[2018-02-11] MEDS: hydrALAZINE 25 MG TABLET PO SCH ×2 (09:53→21:04)
[2018-02-11] MEDS: MULTIVITAMIN (BEROCCA) TABLET PO SCH (09:53)
[2018-02-11] MEDS: MEGESTROL 40 MG TABLET PO SCH ×2 (09:53→21:04)
[2018-02-11] MEDS: METOPROLOL TARTRATE 25 MG TABLET PO SCH ×2 (09:53→21:04)
[2018-02-11] MEDS: METOCLOPRAMIDE 5 MG TABLET PO SCH ×2 (09:53→16:56)
[2018-02-11] MEDS: ASPIRIN CHEW 81 MG TABLET PO SCH (09:54)
[2018-02-11] MEDS: DILTIAZEM CD 120 MG CAPSULE PO SCH (09:54)
[2018-02-11] MEDS: traMADol 50 MG TABLET PO SCH ×2 (09:54→21:04)
[2018-02-11] MEDS: CHOLESTYRAMINE 4 GM PACK PO SCH (09:54)
[2018-02-11] MEDS: ALBUTEROL/IPRATROPIUM 3 ML NEB RESP TX SCH ×3 (11:00→19:32)
[2018-02-11] MEDS: ENOXAPARIN 30 MG/0.3 ML SYRINGE SUBCUT SCH (21:05)
[2018-02-11] MEDS: INSULIN NPH 100 UNIT/ML SUBCUT SCH (22:15)
[2018-02-12 04:40] LABS: Basophils # 0.1 10*3/uL (0.0-0.2); Basophils % 0.6 % (0.0-0.8); Eosinophils # 0.1 10*3/uL (0.0-0.87); Eosinophils % 0.4 % (0.00-10.9); Hematocrit 40.9 VOL% (35.7-47.0); Hemoglobin 13.2 GM/DL (12.0-16.0); Immature Granulocytes Absolute 0.12 #; Lymphocytes # 2.9 10*3/uL (1.4-4.0); Lymphocytes % 23.9 % (21.3-54.2); Mean Corpuscular HGB Conc 32.3 GM/DL (32-36); Mean Corpuscular Hemoglobin 31 PG (27-34); Mean Corpuscular Volume 94.9 FL (87-102); Mean Platelet Volume 11.2 FL (9.6-12.0); Monocytes # 1.5 10*3/uL (0.11-0.8); Monocytes % 12.5 % (1.7-12.7); NRBC # 0.02 10*3/uL; Neutrophils # 7.5 10*3/uL (1.4-7.4); Neutrophils % 61.6 % (38.7-73.9); Platelet Count 205 T/CUMM (130-400); Red Blood Count 4.31 MC/CUMM (3.8-5.5); Red Cell Distribution Width 22.4 % (9.3-17.3); White Blood Count 12.1 T/CUMM (4-12)
[2018-02-12 04:53] LABS: Calcium 8.4 MG/DL (8.5-10.1); Osmolality,Calculated 291.8 MOS/KG (273-304); Potassium 3.2 MMOL/L (3.5-5.1)
[2018-02-12 05:09] LABS: Burr Cells Slight; Hypochromasia Slight; Macrocytosis Slight; Ovalocytes Slight; Platelet Estimate Adequate; Polychromasia Slight
[2018-02-12] MEDS: ALBUTEROL/IPRATROPIUM 3 ML NEB RESP TX SCH ×4 (07:52→19:24)
[2018-02-12] MEDS: MEGESTROL 40 MG TABLET PO SCH ×2 (09:10→21:24)
[2018-02-12] MEDS: LACTOBACILLUS ACIDOPHILUS/BULGARICUS CAPLET PO SCH ×2 (09:10→21:24)
[2018-02-12] MEDS: METOCLOPRAMIDE 5 MG TABLET PO SCH ×2 (09:10→17:15)
[2018-02-12] MEDS: AMIODARONE 200 MG TABLET PO SCH (09:10)
[2018-02-12] MEDS: GABAPENTIN 100 MG CAPSULE PO SCH (09:10)
[2018-02-12] MEDS: PANTOPRAZOLE 40 MG TABLET PO SCH ×2 (09:10→13:01)
[2018-02-12] MEDS: MULTIVITAMIN (BEROCCA) TABLET PO SCH (09:10)
[2018-02-12] MEDS: traMADol 50 MG TABLET PO SCH ×2 (09:10→21:38)
[2018-02-12] MEDS: ASPIRIN CHEW 81 MG TABLET PO SCH (09:10)
[2018-02-12] MEDS: METOPROLOL TARTRATE 25 MG TABLET PO SCH ×2 (09:11→21:24)
[2018-02-12] MEDS: CHOLESTYRAMINE 4 GM PACK PO SCH ×2 (09:11→21:22)
[2018-02-12] MEDS: INSULIN LISPRO 100 UNIT/ML SUBCUT SCH ×4 (12:59→21:22)
[2018-02-12] MEDS: hydrALAZINE 25 MG TABLET PO SCH ×2 (13:01→21:41)
[2018-02-12] MEDS: DILTIAZEM CD 120 MG CAPSULE PO SCH (13:01)
[2018-02-12] MEDS: VANCOMYCIN 50 MG/ML 60 ML/BOTTLE PO SCH ×2 (13:18→18:32)
[2018-02-12] MEDS ORDERED: POTASSIUM CHLORIDE 20 MEQ TABLET PO ONE (18:23)
[2018-02-12] MEDS ORDERED: GABAPENTIN 100 MG CAPSULE PO SCH (21:00)
[2018-02-12] MEDS: ENOXAPARIN 30 MG/0.3 ML SYRINGE SUBCUT SCH (21:23)
[2018-02-13] MEDS: VANCOMYCIN 50 MG/ML 60 ML/BOTTLE PO SCH ×3 (00:25→13:11)
[2018-02-13] MEDS: ALBUTEROL/IPRATROPIUM 3 ML NEB RESP TX SCH ×3 (07:30→16:33)
[2018-02-13] MEDS: INSULIN LISPRO 100 UNIT/ML SUBCUT SCH ×3 (09:52→16:33)
[2018-02-13] MEDS: hydrALAZINE 25 MG TABLET PO SCH ×2 (10:03→13:10)
[2018-02-13] MEDS: LACTOBACILLUS ACIDOPHILUS/BULGARICUS CAPLET PO SCH (13:09)
[2018-02-13] MEDS: METOPROLOL TARTRATE 25 MG TABLET PO SCH (13:10)
[2018-02-13] MEDS: AMIODARONE 200 MG TABLET PO SCH (13:10)
[2018-02-13] MEDS: DILTIAZEM CD 120 MG CAPSULE PO SCH (13:10)
[2018-02-13] MEDS: MULTIVITAMIN (BEROCCA) TABLET PO SCH (13:10)
[2018-02-13] MEDS: PANTOPRAZOLE 40 MG TABLET PO SCH (13:10)
[2018-02-13] MEDS: CHOLESTYRAMINE 4 GM PACK PO SCH (13:11)
[2018-02-13] MEDS: ASPIRIN CHEW 81 MG TABLET PO SCH (13:11)
[2018-02-13] MEDS: MEGESTROL 40 MG TABLET PO SCH (13:11)
[2018-02-13] MEDS: traMADol 50 MG TABLET PO SCH (13:11)
[2018-02-13 14:35] VITALS: BP 169/92
== END 2018-02-13 17:25 ==
LOC: EDBD → EDUNIT# → N.EDINP 11:05 → N.ED 11:05 → N.EDINP 17:50 → N.TELES 17:55
PROVIDERS: ADMIT Hospitalist; ATTEND Hospitalist

== ENCOUNTER 2018-02-15 06:21 | Inpatient (IN) ==
[2018-02-15] MEDS ORDERED: methylPREDNISolone SOD SUC 40 MG/1 ML VIAL IV STA (06:35)
[2018-02-15] MEDS ORDERED: SODIUM CHLORIDE 0.9% 1,000 ML IV STA (07:02)
[2018-02-15] MEDS ORDERED: CALCIUM CHLORIDE 1,000 MG/10 ML SYRINGE IV STA (07:04)
[2018-02-15] MEDS ORDERED: ATROPINE 1 MG/10 ML SYRINGE ONE (07:04)
[2018-02-15] MEDS ORDERED: ATROPINE 1 MG/10 ML SYRINGE IV STA (07:04)
[2018-02-15] MEDS ORDERED: CALCIUM CHLORIDE 1,000 MG/10 ML SYRINGE IV ONE (07:04)
[2018-02-15 07:25] LABS: Basophils # 0.1 10*3/uL (0.0-0.2); Basophils % 0.7 % (0.0-0.8); Eosinophils % 0.2 % (0.00-10.9); NRBC # 0.03 10*3/uL; Neutrophils # 6.5 10*3/uL (1.4-7.4)
[2018-02-15 07:31] LABS: ABG Base Excess -17.4 MMOL/L (-2.5-2.5); ABG HCO3 11.5 MMOL/L (20-26); ABG Oxygen Saturation 98.5 % (95-100); ABG PCO2 32.4 MM HG (35-48); ABG TCO2 10.3 MMOL/L (23-27)
[2018-02-15 07:32] LABS: Hematocrit 35.9 VOL% (35.7-47.0); Immature Granulocytes % 2.5 %; Lymphocytes # 4.8 10*3/uL (1.4-4.0); Lymphocytes % 39.8 % (21.3-54.2); Mean Corpuscular HGB Conc 30.9 GM/DL (32-36); Mean Corpuscular Hemoglobin 31 PG (27-34); Mean Corpuscular Volume 99.2 FL (87-102); Monocytes # 0.3 10*3/uL (0.11-0.8); Monocytes % 2.7 % (1.7-12.7); Neutrophils % 54.1 % (38.7-73.9); Red Cell Distribution Width 21.5 % (9.3-17.3)
[2018-02-15 07:32] LABS: ABG PH 7.137 (7.35-7.45)
[2018-02-15 07:33] LABS: Hemoglobin 11.1 GM/DL (12.0-16.0); Platelet Count 138 T/CUMM (130-400); Red Blood Count 3.62 MC/CUMM (3.8-5.5)
[2018-02-15] MEDS ORDERED: SODIUM BICARBONATE 50 MEQ/50 ML SYRINGE IV ONE (07:36)
[2018-02-15] MEDS ORDERED: MIDAZOLAM 2 MG/2 ML VIAL IV STA (07:45)
[2018-02-15] MEDS ORDERED: MIDAZOLAM 2 MG/2 ML VIAL ONE (07:46)
[2018-02-15 07:54] LABS: Alanine Aminotransferase 45 U/L (13-56); Albumin 1.3 G/DL (3.4-5.0); Alkaline Phosphatase 144 U/L (45-117); Aspartate Amino Transferase 99 U/L (0-37); Blood Urea Nitrogen 60 MG/DL (7-18); Calcium 11.9 MG/DL (8.5-10.1); Glucose 135 MG/DL (74-106); Osmolality,Calculated 304.8 MOS/KG (273-304); Potassium 5.5 MMOL/L (3.5-5.1); Sodium 144 MMOL/L (136-145); Total Protein 4.3 G/DL (6.4-8.3)
[2018-02-15 07:55] LABS: Lactic Acid 8.8 MMOL/L (0.4-2.0)
[2018-02-15] MEDS ORDERED: ONDANSETRON 4 MG/2 ML VIAL IV PRN (08:03)
[2018-02-15] MEDS ORDERED: ALBUTEROL 2.5 MG/3 ML NEB RESP TX PRN (08:03)
[2018-02-15] MEDS ORDERED: MEROPENEM 1,000 MG in SODIUM CHLORIDE 0.9% 100 ML IV STA (08:12)
[2018-02-15 08:24] LABS: ABG Base Excess -11.4 MMOL/L (-2.5-2.5); ABG HCO3 15.1 MMOL/L (20-26); ABG Oxygen Saturation 99.1 % (95-100); ABG PO2 217.8 MM HG (80-95); ABG TCO2 16.2 MMOL/L (23-27)
[2018-02-15] MEDS ORDERED: NOREPINEPHRINE 4 MG/4 ML VIAL IV ONE (08:24)
[2018-02-15 08:27] LABS: Band Neutrophils 11 % (0-10); Hypochromasia Slight; Lymphocytes 38 % (20-55); Metamyelocytes 1 %; Polychromasia Slight; Segmented Neutrophils 47 % (50-85); Total Cells Counted 100
[2018-02-15 08:28] LABS: Burr Cells Few; Macrocytosis 1+
[2018-02-15 08:34] LABS: Atypical Lymphocytes Few
[2018-02-15] MEDS: NOREPINEPHRINE 8 MG in SODIUM CHLORIDE 0.9% 242 ML IV SCH ×2 (08:44→19:05)
[2018-02-15] MEDS: SODIUM CHLORIDE 0.9% 1,000 ML IV SCH (10:31)
[2018-02-15] MEDS: PANTOPRAZOLE 40 MG VIAL IV SCH (11:20)
[2018-02-15] MEDS ORDERED: SODIUM CHLORIDE 0.9% 500 ML IV ONE (14:21)
[2018-02-15] MEDS ORDERED: SODIUM PHOSPHATE ENEMA 133 ML BOTTLE RECTAL PRN (14:21)
[2018-02-15] MEDS ORDERED: SODIUM CHLORIDE 0.9% 1,000 ML IV ONE (14:21)
[2018-02-15 14:24] LABS: Lactic Acid 8.5 MMOL/L (0.4-2.0)
[2018-02-15] MEDS: PROPOFOL 1,000 MG/100 ML BOTTLE IV SCH (14:30)
[2018-02-15] MEDS: MEROPENEM 500 MG in SODIUM CHLORIDE 0.9% 100 ML IV SCH (15:34)
[2018-02-15] MEDS: VANCOMYCIN 50 MG/ML 60 ML/BOTTLE PO SCH (19:04)
[2018-02-16] MEDS: VANCOMYCIN 50 MG/ML 60 ML/BOTTLE PO SCH ×4 (00:49→18:48)
[2018-02-16] MEDS: NOREPINEPHRINE 16 MG in SODIUM CHLORIDE 0.9% 234 ML IV PRN ×2 (02:30→15:00)
[2018-02-16] MEDS ORDERED: PHENYLEPHRINE DRIP 40 MG/250 ML PREMIX IV ONE ×3 (03:16→10:44)
[2018-02-16] MEDS ORDERED: DOPamine 0 MG/0 ML PREMIX IV ONE (03:23)
[2018-02-16 03:24] LABS: Allen Test Positive; Pt O2 Delivery Device Ventilator
[2018-02-16 03:25] LABS: ABG Base Excess -8.8 MMOL/L (-2.5-2.5); ABG HCO3 17.1 MMOL/L (20-26); ABG PCO2 35.5 MM HG (35-48); ABG PH 7.289 (7.35-7.45); ABG PO2 56.4 MM HG (80-95); ABG TCO2 15.6 MMOL/L (23-27)
[2018-02-16] MEDS: ACETAMINOPHEN 325 MG TABLET PO PRN ×2 (04:35→10:27)
[2018-02-16 05:12] LABS: ABG HCO3 17.6 MMOL/L (20-26); ABG PCO2 36.5 MM HG (35-48); ABG PH 7.301 (7.35-7.45); ABG TCO2 18.7 MMOL/L (23-27); Allen Test Positive; Pt O2 Delivery Device Ventilator
[2018-02-16] MEDS: PHENYLEPHRINE INJ 80 MG in SODIUM CHLORIDE 0.9% 242 ML IV PRN ×3 (05:33→19:15)
[2018-02-16 05:53] LABS: Basophils % 0.2 % (0.0-0.8); Hematocrit 36.8 VOL% (35.7-47.0); Hemoglobin 11.6 GM/DL (12.0-16.0); Immature Granulocytes % 1.7 %; Immature Granulocytes Absolute 0.25 #; Lymphocytes # 0.7 10*3/uL (1.4-4.0); Lymphocytes % 4.4 % (21.3-54.2); Mean Corpuscular HGB Conc 31.5 GM/DL (32-36); Mean Corpuscular Hemoglobin 30 PG (27-34); Mean Corpuscular Volume 96.1 FL (87-102); Monocytes % 6.7 % (1.7-12.7); NRBC # 0.12 10*3/uL; Neutrophils # 13.1 10*3/uL (1.4-7.4); Platelet Count 132 T/CUMM (130-400); Red Blood Count 3.83 MC/CUMM (3.8-5.5); Red Cell Distribution Width 20.5 % (9.3-17.3); White Blood Count 15.1 T/CUMM (4-12)
[2018-02-16 05:59] LABS: Albumin 1.4 G/DL (3.4-5.0); Bilirubin,Total 0.6 MG/DL (0.2-1.0); Calcium 7.7 MG/DL (8.5-10.1); Potassium 4.5 MMOL/L (3.5-5.1); Total Protein 5.5 G/DL (6.4-8.3)
[2018-02-16 06:41] LABS: Acanthocytes Few; Band Neutrophils 7 % (0-10); Hypochromasia 1+; Lymphocytes 2 % (20-55); Metamyelocytes 2 %; Nucleated Red Blood Cells 2 (0-5); Segmented Neutrophils 87 % (50-85); Total Cells Counted 100
[2018-02-16 06:42] LABS: Burr Cells Slight; Macrocytosis 1+; Target Cells Slight
[2018-02-16 06:43] LABS: Platelet Estimate Adequate
[2018-02-16] MEDS: SODIUM CHLORIDE 0.9% 1,000 ML IV SCH (07:28)
[2018-02-16] MEDS: PROPOFOL 1,000 MG/100 ML BOTTLE IV SCH (07:33)
[2018-02-16] MEDS: PANTOPRAZOLE 40 MG VIAL IV SCH (08:36)
[2018-02-16] MEDS ORDERED: PHENYLEPHRINE INJ 80 MG in SODIUM CHLORIDE 0.9% 242 ML IV ONE (10:40)
[2018-02-16] MEDS ORDERED: NOREPINEPHRINE 4 MG/4 ML VIAL IV ONE (10:42)
[2018-02-16] MEDS: MEROPENEM 500 MG in SODIUM CHLORIDE 0.9% 100 ML IV SCH (16:13)
[2018-02-16] MEDS: ACETAMINOPHEN 650 MG SUPP RECTAL PRN (21:16)
[2018-02-17] MEDS: ACETAMINOPHEN 650 MG SUPP RECTAL PRN (00:21)
[2018-02-17] MEDS: VANCOMYCIN 50 MG/ML 60 ML/BOTTLE PO SCH ×4 (00:21→19:06)
[2018-02-17 03:02] LABS: ABG Base Excess -5.9 MMOL/L (-2.5-2.5); ABG HCO3 19.2 MMOL/L (20-26); ABG Oxygen Saturation 98.4 % (95-100); ABG PCO2 36.2 MM HG (35-48); ABG PH 7.342 (7.35-7.45); ABG PO2 122.5 MM HG (80-95); ABG TCO2 20.3 MMOL/L (23-27); Allen Test Positive; Pt O2 Delivery Device Ventilator
[2018-02-17 04:30] LABS: Hematocrit 32.3 VOL% (35.7-47.0); Hemoglobin 10.5 GM/DL (12.0-16.0); Immature Granulocytes % 11.1 %; Immature Granulocytes Absolute 3.29 #; Lymphocytes # 1.8 10*3/uL (1.4-4.0); Lymphocytes % 6.1 % (21.3-54.2); Mean Corpuscular HGB Conc 32.5 GM/DL (32-36); Mean Corpuscular Hemoglobin 31 PG (27-34); Mean Corpuscular Volume 95.8 FL (87-102); Mean Platelet Volume 12.9 FL (9.6-12.0); Monocytes % 3.4 % (1.7-12.7); NRBC # 0.11 10*3/uL; Neutrophils # 23.6 10*3/uL (1.4-7.4); Neutrophils % 79.4 % (38.7-73.9); Red Blood Count 3.37 MC/CUMM (3.8-5.5); Red Cell Distribution Width 19.9 % (9.3-17.3); White Blood Count 29.7 T/CUMM (4-12)
[2018-02-17 04:37] LABS: Platelet Count 87 T/CUMM (130-400)
[2018-02-17] MEDS: NOREPINEPHRINE 16 MG in SODIUM CHLORIDE 0.9% 234 ML IV PRN ×2 (04:55→20:56)
[2018-02-17 05:11] LABS: Hypochromasia 1+; Macrocytosis 1+
[2018-02-17 05:12] LABS: Acanthocytes Few; Burr Cells Slight; Platelet Estimate Decreased
[2018-02-17 05:14] LABS: Albumin 1.3 G/DL (3.4-5.0); Bilirubin,Total 0.5 MG/DL (0.2-1.0); Calcium 6.7 MG/DL (8.5-10.1); Osmolality,Calculated 298.7 MOS/KG (273-304); Potassium 4.9 MMOL/L (3.5-5.1); Total Protein 5.1 G/DL (6.4-8.3)
[2018-02-17 06:04] LABS: Band Neutrophils 7 % (0-10); Lymphocytes 10 % (20-55); Metamyelocytes 1 %; Nucleated Red Blood Cells 1 (0-5); Segmented Neutrophils 80 % (50-85); Total Cells Counted 100
[2018-02-17] MEDS ORDERED: AMIODARONE 150 MG/3 ML VIAL ONE (06:05)
[2018-02-17] MEDS: DEXTROSE 50% 25 GM/50 ML VIAL IV PRN ×2 (06:05→07:15)
[2018-02-17] MEDS ORDERED: AMIODARONE INJ 150 MG in DEXTROSE 5% 100 ML IV ONE (06:07)
[2018-02-17] MEDS ORDERED: AMIODARONE INJ 450 MG in DEXTROSE 5% 241 ML IV SCH ×2 (06:30→07:30)
[2018-02-17] MEDS: PROPOFOL 1,000 MG/100 ML BOTTLE IV SCH (08:34)
[2018-02-17] MEDS: PANTOPRAZOLE 40 MG VIAL IV SCH (09:24)
[2018-02-17] MEDS: AMIODARONE 200 MG TABLET PO SCH (10:43)
[2018-02-17] MEDS ORDERED: GLUCAGON 1 MG VIAL IM PRN (11:57)
[2018-02-17] MEDS: AMIODARONE INJ 450 MG in DEXTROSE 5% 241 ML IV SCH ×2 (13:13→22:55)
[2018-02-17] MEDS: MEROPENEM 500 MG in SODIUM CHLORIDE 0.9% 100 ML IV SCH (15:50)
[2018-02-17 15:54] LABS: ABG Base Excess -9.6 MMOL/L (-2.5-2.5); ABG HCO3 16.7 MMOL/L (20-26); ABG Oxygen Saturation 94.8 % (95-100); ABG PCO2 40.2 MM HG (35-48); ABG PH 7.241 (7.35-7.45); ABG PO2 84.3 MM HG (80-95)
[2018-02-17] MEDS ORDERED: LACTATED RINGERS 1,000 ML IV ONE (16:10)
[2018-02-18] MEDS: VANCOMYCIN 50 MG/ML 60 ML/BOTTLE PO SCH ×4 (00:51→17:00)
[2018-02-18 04:19] LABS: Pt O2 Delivery Device Ventilator
[2018-02-18 04:20] LABS: ABG HCO3 17.9 MMOL/L (20-26); ABG Oxygen Saturation 98.1 % (95-100); ABG PCO2 33.8 MM HG (35-48); ABG PH 7.317 (7.35-7.45); ABG TCO2 15.9 MMOL/L (23-27)
[2018-02-18 05:56] LABS: Albumin 1.2 G/DL (3.4-5.0); Bilirubin,Total 1.2 MG/DL (0.2-1.0); Calcium 6.6 MG/DL (8.5-10.1); Osmolality,Calculated 302.1 MOS/KG (273-304); Potassium 4.4 MMOL/L (3.5-5.1); Total Protein 4.9 G/DL (6.4-8.3)
[2018-02-18 06:13] LABS: Eosinophils % 0.1 % (0.00-10.9); Hematocrit 29.6 VOL% (35.7-47.0); Hemoglobin 9.7 GM/DL (12.0-16.0); Immature Granulocytes % 0.5 %; Lymphocytes # 2.4 10*3/uL (1.4-4.0); Lymphocytes % 5.9 % (21.3-54.2); Mean Corpuscular HGB Conc 32.8 GM/DL (32-36); Mean Corpuscular Hemoglobin 31 PG (27-34); Mean Corpuscular Volume 93.4 FL (87-102); Mean Platelet Volume 13.8 FL (9.6-12.0); Monocytes # 1.3 10*3/uL (0.11-0.8); Monocytes % 3.2 % (1.7-12.7); Neutrophils # 36.7 10*3/uL (1.4-7.4); Neutrophils % 90.3 % (38.7-73.9); Prealbumin 6.9 MG/DL (20-40); Red Blood Count 3.17 MC/CUMM (3.8-5.5); Red Cell Distribution Width 19.6 % (9.3-17.3)
[2018-02-18 06:24] LABS: Platelet Count 67 T/CUMM (130-400); White Blood Count 40.7 T/CUMM (4-12)
[2018-02-18 06:49] LABS: Band Neutrophils 7 % (0-10); Lymphocytes 7 % (20-55); Metamyelocytes 3 %; Segmented Neutrophils 82 % (50-85); Total Cells Counted 100
[2018-02-18 06:50] LABS: Hypochromasia 1+
[2018-02-18 06:51] LABS: Burr Cells Few; Microcytosis 1+; Platelet Estimate Decreased
[2018-02-18] MEDS: AMIODARONE 200 MG TABLET PO SCH ×3 (10:50→21:09)
[2018-02-18] MEDS: PANTOPRAZOLE 40 MG VIAL IV SCH (10:50)
[2018-02-18] MEDS: DEXTROSE 50% 25 GM/50 ML VIAL IV PRN ×2 (11:49→13:50)
[2018-02-18] MEDS: AMIODARONE INJ 450 MG in DEXTROSE 5% 241 ML IV SCH ×2 (12:10→15:27)
[2018-02-18] MEDS: MINERAL OIL/PETROLATUM OPH OINT 3.5 GM TUBE BOTH EYES SCH ×2 (12:20→21:09)
[2018-02-18] MEDS: PROPOFOL 1,000 MG/100 ML BOTTLE IV SCH (12:22)
[2018-02-18] MEDS: MEROPENEM 500 MG in SODIUM CHLORIDE 0.9% 100 ML IV SCH (14:00)
[2018-02-18] MEDS: NOREPINEPHRINE 16 MG in SODIUM CHLORIDE 0.9% 234 ML IV PRN (14:19)
[2018-02-19] MEDS: VANCOMYCIN 50 MG/ML 60 ML/BOTTLE PO SCH ×4 (00:25→17:28)
[2018-02-19] MEDS: NOREPINEPHRINE 16 MG in SODIUM CHLORIDE 0.9% 234 ML IV PRN ×2 (05:02→12:54)
[2018-02-19 05:04] LABS: Allen Test Positive; Pt O2 Delivery Device Ventilator
[2018-02-19] MEDS: AMIODARONE INJ 450 MG in DEXTROSE 5% 241 ML IV SCH ×2 (05:17→08:23)
[2018-02-19 05:21] LABS: Basophils # 0.2 10*3/uL (0.0-0.2); Basophils % 0.6 % (0.0-0.8); Eosinophils # 0.1 10*3/uL (0.0-0.87); Eosinophils % 0.3 % (0.00-10.9); Hematocrit 28.7 VOL% (35.7-47.0); Hemoglobin 8.9 GM/DL (12.0-16.0); Immature Granulocytes % 5.9 %; Immature Granulocytes Absolute 1.53 #; Lymphocytes # 3.2 10*3/uL (1.4-4.0); Lymphocytes % 12.4 % (21.3-54.2); Mean Corpuscular Hemoglobin 30 PG (27-34); Monocytes # 1.3 10*3/uL (0.11-0.8); Monocytes % 5.1 % (1.7-12.7); NRBC # 0.41 10*3/uL; Neutrophils # 19.6 10*3/uL (1.4-7.4); Neutrophils % 75.7 % (38.7-73.9); Red Blood Count 2.93 MC/CUMM (3.8-5.5); White Blood Count 25.9 T/CUMM (4-12)
[2018-02-19 05:22] LABS: ABG Base Excess -14.4 MMOL/L (-2.5-2.5); ABG HCO3 13.6 MMOL/L (20-26); ABG PCO2 39.1 MM HG (35-48); ABG PO2 107.9 MM HG (80-95); ABG TCO2 14.8 MMOL/L (23-27); Platelet Count 40 T/CUMM (130-400)
[2018-02-19 05:23] LABS: ABG Oxygen Saturation 96.6 % (95-100)
[2018-02-19 05:24] LABS: ABG PH 7.159 (7.35-7.45)
[2018-02-19 05:39] LABS: Band Neutrophils 5 % (0-10); Hypochromasia 1+; Lymphocytes 18 % (20-55); Nucleated Red Blood Cells 3 (0-5); Ovalocytes Slight; Platelet Estimate Decreased; Segmented Neutrophils 69 % (50-85); Total Cells Counted 100
[2018-02-19 05:40] LABS: Microcytosis 1+
[2018-02-19 05:53] LABS: Calcium 7.6 MG/DL (8.5-10.1); Osmolality,Calculated 296.7 MOS/KG (273-304); Potassium 3.6 MMOL/L (3.5-5.1)
[2018-02-19] MEDS: PANTOPRAZOLE 40 MG VIAL IV SCH (08:24)
[2018-02-19] MEDS: MINERAL OIL/PETROLATUM OPH OINT 3.5 GM TUBE BOTH EYES SCH (08:27)
[2018-02-19] MEDS: AMIODARONE 200 MG TABLET PO SCH (08:27)
[2018-02-19] MEDS: ACETAMINOPHEN 650 MG SUPP RECTAL PRN (09:28)
[2018-02-19 12:48] VITALS: BP 88/34
[2018-02-19] MEDS: INSULIN REGULAR 100 UNIT/ML SUBCUT SCH ×2 (14:14→17:25)
[2018-02-19] MEDS: MEROPENEM 500 MG in SODIUM CHLORIDE 0.9% 100 ML IV SCH (15:05)
[2018-02-19] MEDS ORDERED: MORPHINE 4 MG/1 ML VIAL IV ONE (15:50)
[2018-02-19] MEDS ORDERED: MORPHINE 4 MG/1 ML VIAL ONE (15:53)
== END 2018-02-19 16:06 | disposition expired | DRG 870 ==
LOC: EDUNIT# → N.ED 06:21 → SUATTDRO 08:03 → N.EDINP 08:03 → N.CC 08:35
PROVIDERS: ADMIT Family Medicine; ATTEND Internal Medicine Nephrology